=== PATIENT | male | born 1970 | race Caucasian/White ===

== ENCOUNTER 2021-10-20 19:19 | Inpatient (IN) | payer SELFPAY ==
[2021-10-20 22:11] LABS: INR-International Normal Ratio 1.3
[2021-10-20 22:14] LABS: ALT (SGPT) 44 U/L (8-55); AST (SGOT) 86 U/L (5-34); Albumin 2.7 g/dL (3.5-5.0); Alkaline Phosphatase 196 U/L (40-110); Anion Gap 12 mmol/L (10-20); BUN (Urea Nitrogen) 14 mg/dL (8.4-25.7); Bilirubin, Total 2.3 mg/dL (0.2-1.2); Calc. Creatinine Clearance 0 mL/min (70-130); Calcium 8.3 mg/dL (7.8-10.44); Carbon Dioxide 24 mmol/L (22-29); Chloride 94 mmol/L (98-107); Globulin 4.5 g/dL (2.4-3.5); Glucose 130 mg/dL (70-105); Potassium 3.3 mmol/L (3.5-5.1); Protein, Total 7.2 g/dL (6.0-8.3); Sodium 127 mmol/L (136-145)
[2021-10-20 22:18] LABS: Mean Corpuscular HGB CONC 35.1 g/dL (32.0-36.0); Mean Corpuscular Hemoglobin 36.3 pg (27.0-31.0); RBC Distribution Width 12.5 % (11.5-14.5); Red Blood Cell (RBC) Count 4.41 mill/uL (4.70-6.10); White Blood Cell (WBC) Count 6.6 thou/uL (4.8-10.8)
[2021-10-20 22:29] LABS: #Lymphocytes 0.5 thou/uL (1.20-3.40); #Monocytes 0.6 thou/uL (0.11-0.59); #Neutrophils 5.4 thou/uL (1.40-6.50); %Basophils 0.1 % (0.0-1.0); %Eosinophils 0.1 % (0.0-10.0); %Lymphocytes 8.2 % (21.0-51.0); %Monocytes 9.6 % (0.0-10.0); %Neutrophils 82.1 % (42.0-75.0); Mean Platelet Volume 9.4 fL (7.4-10.4); Platelet Count 44 thou/uL (130-400); Platelet Morphology Comment Appears Decreased
[2021-10-20] MEDS ORDERED: Dextrose 5% in Water 1,000 ML IV PRN (23:42)
[2021-10-20] MEDS ORDERED: Dextrose 50% Abboject 50 ML SYRINGE SLOW IVP PRN (23:42)
[2021-10-20] MEDS ORDERED: traMADol HCl 50 MG TAB PO PRN (23:49)
[2021-10-21] MEDS ORDERED: Furosemide 20 MG/2 ML VIAL SLOW IVP SCH (00:15)
[2021-10-21 01:04] LABS: SARS-CoV-2 NAA Rapid Test DETECTED (NotDetected)
[2021-10-21] MEDS: Nicotine 14 MG PATCH TD SCH ×2 (01:53→23:42)
[2021-10-21] MEDS ORDERED: Potassium Chloride 20 MEQ TAB PO SCH (02:00)
[2021-10-21] MEDS ORDERED: Electrolyte Replacement Protocol 1 EACH FS PRN (04:30)
[2021-10-21] MEDS: Furosemide 20 MG/2 ML VIAL SLOW IVP SCH ×2 (06:05→14:02)
[2021-10-21] MEDS: Lorazepam 1 MG TAB PO SCH ×4 (07:08→23:44)
[2021-10-21 07:53] LABS: CRP (Inflammatory) 14.48 mg/dL (= or < 0.5); Magnesium 1.7 mg/dL (1.6-2.6); Phosphorus 2.5 mg/dL (2.3-4.7)
[2021-10-21] MEDS: cefTRIAXone\\ROCEPHIN 1 GM in Sodium Chloride 0.9% 100 ML IVPB SCH (07:54)
[2021-10-21] MEDS: Ascorbic Acid 500 mg Chewable Tablet PO SCH (07:55)
[2021-10-21] MEDS: Spironolactone 25 MG TAB PO SCH (07:55)
[2021-10-21] MEDS: Zinc Sulfate 220 MG CAP PO SCH (07:55)
[2021-10-21] MEDS: Folic Acid 1 MG TAB PO SCH (07:56)
[2021-10-21] MEDS ORDERED: Spironolactone 25 MG TAB PO SCH (08:00)
[2021-10-21] MEDS ORDERED: Magnesium 2 GM/50 ML 2 GM in Premix Bag 1 BAG IVPB SCH (10:45)
[2021-10-21] MEDS: HYDROcodone/Acetaminophen 5/325 mg Tablet PO PRN ×2 (14:11→23:47)
[2021-10-21 18:10] LABS: Iron 15 ug/dL (65-175); Iron Binding Capacity, Total 221 mcg/dL (261-462)
[2021-10-21 18:28] LABS: HBSAB Concentration Less than 8.00 mIU/mL; HBSAg Index 0.29 S/CO (0-0.99); Hep B Surf AB Non-Reactive (NonReactive); Hep B Surf Ag Non-Reactive S/CO (NonReactive); Hep C IgG Ab Non-Reactive (NonReactive); Hep C Index 0.16 S/CO (0-0.79)
[2021-10-22] MEDS: Furosemide 20 MG/2 ML VIAL SLOW IVP SCH ×2 (05:27→14:23)
[2021-10-22] MEDS: Lorazepam 1 MG TAB PO SCH ×4 (05:27→23:51)
[2021-10-22 07:56] LABS: ALT (SGPT) 41 U/L (8-55); AST (SGOT) 86 U/L (5-34); Albumin 2.4 g/dL (3.5-5.0); Alkaline Phosphatase 181 U/L (40-110); Anion Gap 12 mmol/L (10-20); BUN (Urea Nitrogen) 14 mg/dL (8.4-25.7); Bilirubin, Total 1.9 mg/dL (0.2-1.2); Calc. Creatinine Clearance 144 mL/min (70-130); Calcium 7.9 mg/dL (7.8-10.44); Carbon Dioxide 26 mmol/L (22-29); Chloride 91 mmol/L (98-107); Glucose 136 mg/dL (70-105); Potassium 3.2 mmol/L (3.5-5.1); Protein, Total 6.4 g/dL (6.0-8.3); Sodium 126 mmol/L (136-145)
[2021-10-22 08:00] LABS: Hemoglobin 14.1 g/dL (14.0-18.0); Mean Corpuscular HGB CONC 33.7 g/dL (32.0-36.0); Mean Platelet Volume 8.3 fL (7.4-10.4); Platelet Count 43 thou/uL (130-400); RBC Distribution Width 12.4 % (11.5-14.5); Red Blood Cell (RBC) Count 4.04 mill/uL (4.70-6.10); White Blood Cell (WBC) Count 4.3 thou/uL (4.8-10.8)
[2021-10-22] MEDS: Folic Acid 1 MG TAB PO SCH (08:12)
[2021-10-22] MEDS: Zinc Sulfate 220 MG CAP PO SCH (08:12)
[2021-10-22] MEDS: Spironolactone 25 MG TAB PO SCH (08:12)
[2021-10-22] MEDS: cefTRIAXone\\ROCEPHIN 1 GM in Sodium Chloride 0.9% 100 ML IVPB SCH (08:12)
[2021-10-22] MEDS: Ascorbic Acid 500 mg Chewable Tablet PO SCH (08:12)
[2021-10-22 11:49] LABS: Band 5 % (5-11); Lymphocytes 12 % (21-51); MDiff Complete? YES; Monocytes 14 % (0-10); Neutrophil 69 % (42-75); Platelet Morphology Comment Appears Decreased; RBC Morphology Normal
[2021-10-22 13:21] LABS: RBC Count-Automated (BF) 1102 /cu.mm; WBC/Nucleated-Auto (BF) 1266 /cu.mm
[2021-10-22 13:43] LABS: BF Color Yellow; Body Fluid Source Ascites Body Fluid; Clarity Hazy (Clear); Tube # EDTA
[2021-10-22 13:46] LABS: BF Segmented Neutrophils 31 %; Cell Count Non Hematic 54 %; Lymphocytes 15 %
[2021-10-22] MEDS ORDERED: Dexamethasone 6 MG in Sodium Chloride 0.9% 50 ML IVPB SCH (17:41)
[2021-10-22] MEDS ORDERED: Dexamethasone 4 mg/ml Vial SLOW IVP SCH (18:30)
[2021-10-22] MEDS: HYDROcodone/Acetaminophen 5/325 mg Tablet PO PRN (22:09)
[2021-10-23] MEDS: Nicotine 14 MG PATCH TD SCH ×2 (00:05→23:56)
[2021-10-23] MEDS: Furosemide 20 MG/2 ML VIAL SLOW IVP SCH ×2 (05:55→14:47)
[2021-10-23] MEDS ORDERED: Lorazepam 1 MG TAB PO PRN (06:13)
[2021-10-23 07:16] LABS: Anion Gap 12 mmol/L (10-20); BUN (Urea Nitrogen) 15 mg/dL (8.4-25.7); CRP (Inflammatory) 10.09 mg/dL (= or < 0.5); Calc. Creatinine Clearance 153 mL/min (70-130); Calcium 8.5 mg/dL (7.8-10.44); Carbon Dioxide 27 mmol/L (22-29); Chloride 93 mmol/L (98-107); Glucose 186 mg/dL (70-105); Potassium 3.6 mmol/L (3.5-5.1); Sodium 128 mmol/L (136-145)
[2021-10-23] MEDS: Zinc Sulfate 220 MG CAP PO SCH (08:13)
[2021-10-23] MEDS: Spironolactone 25 MG TAB PO SCH (08:13)
[2021-10-23] MEDS: Ascorbic Acid 500 mg Chewable Tablet PO SCH (08:13)
[2021-10-23] MEDS: Folic Acid 1 MG TAB PO SCH (08:13)
[2021-10-23] MEDS: Dexamethasone 4 mg/ml Vial SLOW IVP SCH (08:14)
[2021-10-23] MEDS: cefTRIAXone\\ROCEPHIN 1 GM in Sodium Chloride 0.9% 100 ML IVPB SCH (08:14)
[2021-10-23] MEDS: HumaLOG 300 UNITS/3 ML VIAL SC PRN ×3 (12:10→20:57)
[2021-10-24] MEDS ORDERED: Lorazepam 1 MG TAB PO PRN (03:29)
[2021-10-24] MEDS: Thiamine 100 MG TAB PO SCH (05:00)
[2021-10-24] MEDS: Furosemide 20 MG/2 ML VIAL SLOW IVP SCH ×2 (05:00→14:22)
[2021-10-24] MEDS: HumaLOG 300 UNITS/3 ML VIAL SC PRN ×4 (05:24→23:02)
[2021-10-24 06:04] LABS: #Lymphocytes 0.3 thou/uL (1.20-3.40); #Monocytes 0.6 thou/uL (0.11-0.59); #Neutrophils 3.7 thou/uL (1.40-6.50); %Basophils 0.3 % (0.0-1.0); %Monocytes 13.3 % (0.0-10.0); %Neutrophils 80.3 % (42.0-75.0); Hemoglobin 14.1 g/dL (14.0-18.0); Mean Corpuscular Hemoglobin 35.1 pg (27.0-31.0); Mean Platelet Volume 8.8 fL (7.4-10.4); Platelet Count 47 thou/uL (130-400); RBC Distribution Width 12.3 % (11.5-14.5); Red Blood Cell (RBC) Count 4.01 mill/uL (4.70-6.10); White Blood Cell (WBC) Count 4.6 thou/uL (4.8-10.8)
[2021-10-24 06:17] LABS: Anion Gap 11 mmol/L (10-20); BUN (Urea Nitrogen) 17 mg/dL (8.4-25.7); CRP (Inflammatory) 6.97 mg/dL (= or < 0.5); Calc. Creatinine Clearance 165 mL/min (70-130); Calcium 8.3 mg/dL (7.8-10.44); Carbon Dioxide 30 mmol/L (22-29); Chloride 95 mmol/L (98-107); Glucose 190 mg/dL (70-105); Potassium 3.6 mmol/L (3.5-5.1); Sodium 132 mmol/L (136-145)
[2021-10-24] MEDS: Ascorbic Acid 500 mg Chewable Tablet PO SCH (08:17)
[2021-10-24] MEDS: Spironolactone 25 MG TAB PO SCH (08:17)
[2021-10-24] MEDS: Dexamethasone 4 mg/ml Vial SLOW IVP SCH (08:18)
[2021-10-24] MEDS: Zinc Sulfate 220 MG CAP PO SCH (08:18)
[2021-10-24] MEDS: Folic Acid 1 MG TAB PO SCH (08:18)
[2021-10-24] MEDS: cefTRIAXone\\ROCEPHIN 1 GM in Sodium Chloride 0.9% 100 ML IVPB SCH (08:25)
[2021-10-24] MEDS: Nicotine 14 MG PATCH TD SCH ×2 (20:16→22:00)
[2021-10-25] MEDS: Thiamine 100 MG TAB PO SCH (05:19)
[2021-10-25] MEDS: Furosemide 20 MG/2 ML VIAL SLOW IVP SCH ×2 (05:19→14:44)
[2021-10-25 05:56] VITALS: BMI 30.2
[2021-10-25] MEDS: HumaLOG 300 UNITS/3 ML VIAL SC PRN ×4 (06:17→19:52)
[2021-10-25 07:16] LABS: #Lymphocytes 0.3 thou/uL (1.20-3.40); #Monocytes 0.5 thou/uL (0.11-0.59); #Neutrophils 4.3 thou/uL (1.40-6.50); %Basophils 0.2 % (0.0-1.0); %Eosinophils 0.1 % (0.0-10.0); %Lymphocytes 6.6 % (21.0-51.0); %Monocytes 9.6 % (0.0-10.0); %Neutrophils 83.5 % (42.0-75.0); Hemoglobin 14.9 g/dL (14.0-18.0); Mean Corpuscular HGB CONC 34.2 g/dL (32.0-36.0); Mean Platelet Volume 8.5 fL (7.4-10.4); Platelet Count 55 thou/uL (130-400); RBC Distribution Width 12.3 % (11.5-14.5); Red Blood Cell (RBC) Count 4.26 mill/uL (4.70-6.10); White Blood Cell (WBC) Count 5.1 thou/uL (4.8-10.8)
[2021-10-25 07:28] LABS: Anion Gap 10 mmol/L (10-20); BUN (Urea Nitrogen) 14 mg/dL (8.4-25.7); CRP (Inflammatory) 4.48 mg/dL (= or < 0.5); Calc. Creatinine Clearance 177 mL/min (70-130); Calcium 8.2 mg/dL (7.8-10.44); Carbon Dioxide 30 mmol/L (22-29); Chloride 96 mmol/L (98-107); Glucose 208 mg/dL (70-105); Potassium 3.4 mmol/L (3.5-5.1); Sodium 133 mmol/L (136-145)
[2021-10-25] MEDS ORDERED: Potassium Chloride 20 MEQ TAB PO SCH (08:00)
[2021-10-25] MEDS: Dexamethasone 4 mg/ml Vial SLOW IVP SCH (08:59)
[2021-10-25] MEDS: cefTRIAXone\\ROCEPHIN 1 GM in Sodium Chloride 0.9% 100 ML IVPB SCH (08:59)
[2021-10-25] MEDS: Spironolactone 25 MG TAB PO SCH (09:03)
[2021-10-25] MEDS: Zinc Sulfate 220 MG CAP PO SCH (09:04)
[2021-10-25] MEDS: Ascorbic Acid 500 mg Chewable Tablet PO SCH (09:04)
[2021-10-25] MEDS: Folic Acid 1 MG TAB PO SCH (09:04)
[2021-10-25 16:12] LABS: RBC Count-Automated (BF) 1157 /cu.mm; WBC/Nucleated-Auto (BF) 328 /cu.mm
[2021-10-25 16:17] LABS: BF Color Yellow; Body Fluid Source Ascites Body Fluid; Clarity Hazy (Clear); Tube # EDTA
[2021-10-25 16:43] LABS: BF Segmented Neutrophils 6 %; Cell Count Non Hematic 68 %; Lymphocytes 26 %
[2021-10-25] MEDS: Nicotine 14 MG PATCH TD SCH (23:15)
[2021-10-26] MEDS: Furosemide 20 MG/2 ML VIAL SLOW IVP SCH (05:17)
[2021-10-26] MEDS: Thiamine 100 MG TAB PO SCH (05:17)
[2021-10-26] MEDS: HumaLOG 300 UNITS/3 ML VIAL SC PRN ×2 (05:25→11:41)
[2021-10-26 07:38] LABS: #Lymphocytes 0.4 thou/uL (1.20-3.40); #Monocytes 0.5 thou/uL (0.11-0.59); #Neutrophils 5.2 thou/uL (1.40-6.50); %Basophils 0.6 % (0.0-1.0); %Lymphocytes 6.9 % (21.0-51.0); %Monocytes 8.2 % (0.0-10.0); %Neutrophils 84.3 % (42.0-75.0); Hemoglobin 16.4 g/dL (14.0-18.0); Mean Corpuscular HGB CONC 34.2 g/dL (32.0-36.0); Mean Platelet Volume 8.6 fL (7.4-10.4); Platelet Count 62 thou/uL (130-400); RBC Distribution Width 12.4 % (11.5-14.5); Red Blood Cell (RBC) Count 4.69 mill/uL (4.70-6.10); White Blood Cell (WBC) Count 6.2 thou/uL (4.8-10.8)
[2021-10-26 07:57] LABS: Anion Gap 10 mmol/L (10-20); BUN (Urea Nitrogen) 16 mg/dL (8.4-25.7); Calc. Creatinine Clearance 154 mL/min (70-130); Calcium 8.7 mg/dL (7.8-10.44); Carbon Dioxide 30 mmol/L (22-29); Chloride 95 mmol/L (98-107); Glucose 223 mg/dL (70-105); Potassium 3.5 mmol/L (3.5-5.1); Sodium 131 mmol/L (136-145)
[2021-10-26] MEDS ORDERED: Spironolactone 100 MG TAB PO SCH (08:00)
[2021-10-26] MEDS: cefTRIAXone\\ROCEPHIN 1 GM in Sodium Chloride 0.9% 100 ML IVPB SCH (08:04)
[2021-10-26] MEDS: Ascorbic Acid 500 mg Chewable Tablet PO SCH (08:04)
[2021-10-26] MEDS: Folic Acid 1 MG TAB PO SCH (08:04)
[2021-10-26] MEDS: Zinc Sulfate 220 MG CAP PO SCH (08:04)
[2021-10-26] MEDS: Dexamethasone 4 mg/ml Vial SLOW IVP SCH (08:05)
[2021-10-26 08:20] VITALS: BP 126/76; TEMP 97.8
[2021-10-26] MEDS ORDERED: Potassium Chloride 20 MEQ TAB PO SCH (09:00)
== END 2021-10-26 12:00 | disposition home or self-care (01) | DRG 432 ==
LOC: ERS 19:19 → T4-B 23:06 → OBSVTOIN 10-22 09:30
PROVIDERS: ADMIT Student in an Organized Health Care Education/Training Program; ATTEND Internal Medicine
PROC: 8E0ZXY6 Isolation (ICD-10-PCS; principal; 2021-10-22)
PROC: 0W9G3ZZ Drainage of Peritoneal Cavity, Percutaneous Approach (ICD-10-PCS; 2021-10-22)
PROC: 0W9G3ZZ Drainage of Peritoneal Cavity, Percutaneous Approach (ICD-10-PCS; 2021-10-22)
DX: K70.31 Alcoholic cirrhosis of liver with ascites (principal); K65.2 Spontaneous bacterial peritonitis; K72.00 Acute and subacute hepatic failure without coma; U07.1 COVID-19; J12.82 Pneumonia due to coronavirus disease 2019; E87.1 Hypo-osmolality and hyponatremia; F10.239 Alcohol dependence with withdrawal, unspecified; E11.9 Type 2 diabetes mellitus without complications; I25.10 Atherosclerotic heart disease of native coronary artery without angina pectoris; E78.5 Hyperlipidemia, unspecified; K21.9 Gastro-esophageal reflux disease without esophagitis; F17.210 Nicotine dependence, cigarettes, uncomplicated; D69.6 Thrombocytopenia, unspecified; E87.6 Hypokalemia; I25.2 Old myocardial infarction; Z95.5 Presence of coronary angioplasty implant and graft
CPT/HCPCS: 0240U; 36415; 36416; 49083; 71045; 76705; 80048; 80053; 82042; 82105; 82140; 83540; 83550; 83615; 83735; 83930; 83935; 84100; 85025; 85060; 85610; 85730; 86140; 86706; 86708; 86803; 87045; 87046; 87070; 87205; 87324; 87328; 87329; 87340; 87427; 87449; 89051; J0696; J1100; J1815; J1940; J3475; J3490

== ENCOUNTER 2021-11-10 06:55 | Inpatient (IN) | payer OTHER, SELFPAY ==
[2021-11-10 07:36] LABS: Bilirubin Negative (Negative); Blood, Urine Moderate (Negative); Glucose, Urine (Dipstick) >=1000 mg/dL (Negative); Ketone, Urine Negative (Negative); Leukocyte Negative (Negative); Nitrite Negative (Negative); Protein, Urine (Dipstick) 30 mg/dL (Neg-Trace); Urobilinogen 0.2 mg/dL (Less than 2); pH, Urine 5.5 (5.0-9.0)
[2021-11-10 07:40] LABS: Clarity Hazy (Clear)
[2021-11-10 07:44] LABS: RBC/HPF 0-3 HPF (0-3)
[2021-11-10 07:45] LABS: Renal Epithelial 0-3 HPF (None Seen); Squamous Epithelial 0-3 HPF (0-3); WBC/HPF 0-3 HPF (0-3)
[2021-11-10 07:47] LABS: Bacteria/HPF 2+ HPF (None Seen)
[2021-11-10] MEDS ORDERED: Cefepime 2 GM VIAL ONE (07:47)
[2021-11-10 07:57] LABS: Broad Cast 0-3 LPF (None Seen)
[2021-11-10] MEDS ORDERED: Vancomycin 1 GM/200 ML BAG ONE (08:29)
[2021-11-10 08:32] LABS: Hemoglobin 16.5 g/dL (14.0-18.0); Mean Corpuscular HGB CONC 33.4 g/dL (32.0-36.0); Mean Corpuscular Hemoglobin 34.2 pg (27.0-31.0); Mean Platelet Volume 10.5 fL (7.4-10.4); Platelet Count 46 thou/uL (130-400); RBC Distribution Width 14.3 % (11.5-14.5); Red Blood Cell (RBC) Count 4.84 mill/uL (4.70-6.10); White Blood Cell (WBC) Count 9.3 thou/uL (4.8-10.8)
[2021-11-10 08:51] LABS: Band 2 % (5-11); Lymphocytes 2 % (21-51); MDiff Complete? YES; Monocytes 8 % (0-10); Neutrophil 86 % (42-75); Platelet Morphology Comment Appears Decreased; Polychromasia SLIGHT = 2-3 cells (100X) (0-2/hpf); Reactive Lymphocytes 2 % (0-10); Vacuoles SLIGHT
[2021-11-10 09:20] LABS: ALT (SGPT) 98 U/L (8-55); AST (SGOT) 106 U/L (5-34); Albumin 2.4 g/dL (3.5-5.0); Alkaline Phosphatase 260 U/L (40-110); Anion Gap 25 mmol/L (10-20); BUN (Urea Nitrogen) 73 mg/dL (8.4-25.7); Bilirubin, Total 4.5 mg/dL (0.2-1.2); Calc. Creatinine Clearance 0 mL/min (70-130); Calcium 7.9 mg/dL (7.8-10.44); Carbon Dioxide 12 mmol/L (22-29); Chloride 89 mmol/L (98-107); Globulin 4.5 g/dL (2.4-3.5); Glucose 228 mg/dL (70-105); Lipase 189 U/L (8-78); Protein, Total 6.9 g/dL (6.0-8.3); Sodium 121 mmol/L (136-145)
[2021-11-10 09:49] LABS: Analyzer IN Cardio ER; Base Excess -7.7 mEq/L (-2.0 to +3.0); Calcium, Ionized (venous) 0.87 mmol/L (1.16-1.32); Chloride (VBG) 90 mmol/L (98-106); Hemoglobin (Hb) 16.8 g/dL (13.1-17.2); Potassium (VBG) 4.97 mmol/L (3.70-5.30); pH (venous) 7.43 (7.32-7.43)
[2021-11-10 09:53] LABS: Actual Bicarbonate (HCO3v) 14 mEq/L (22-28)
[2021-11-10 09:58] LABS: INR-International Normal Ratio 1.4
[2021-11-10 09:59] LABS: PTT 42.3 sec (22.9-36.1)
[2021-11-10 10:16] LABS: ALT (SGPT) 95 U/L (8-55); AST (SGOT) 98 U/L (5-34); Albumin 2.1 g/dL (3.5-5.0); Alkaline Phosphatase 241 U/L (40-110); Anion Gap 26 mmol/L (10-20); BUN (Urea Nitrogen) 70 mg/dL (8.4-25.7); Bilirubin, Total 4.4 mg/dL (0.2-1.2); Calc. Creatinine Clearance 0 mL/min (70-130); Calcium 7.9 mg/dL (7.8-10.44); Carbon Dioxide 9 mmol/L (22-29); Chloride 92 mmol/L (98-107); Globulin 4.4 g/dL (2.4-3.5); Glucose 262 mg/dL (70-105); Potassium 5.2 mmol/L (3.5-5.1); Protein, Total 6.5 g/dL (6.0-8.3); Sodium 122 mmol/L (136-145)
[2021-11-10] MEDS ORDERED: Ondansetron PF 4 MG/2 ML Vial IVP PRN (10:30)
[2021-11-10] MEDS ORDERED: Ondansetron ODT 4 MG TAB SL PRN (10:30)
[2021-11-10] MEDS ORDERED: Dextrose 50% Abboject 50 ML SYRINGE SLOW IVP PRN (11:13)
[2021-11-10] MEDS ORDERED: Senokot S 8.6-50 MG TAB PO PRN (11:13)
[2021-11-10] MEDS ORDERED: Dextrose 5% in Water 1,000 ML IV PRN (11:13)
[2021-11-10] MEDS ORDERED: Sodium Bicarbonate 150 MEQ in Dextrose 5% in Water 1,000 ML IV SCH (11:15)
[2021-11-10] MEDS: Cefepime 0.5 GM in Sodium Chloride 0.9% 100 ML IVPB SCH (13:14)
[2021-11-10 16:08] LABS: Lactic Acid 4.5 mmol/L (0.5-2.2)
[2021-11-10] MEDS: HumaLOG 300 UNITS/3 ML VIAL SC PRN (16:16)
[2021-11-10] MEDS: Heparin 5,000 UNITS/ML VIAL SC SCH (22:00)
[2021-11-10] MEDS: Lantus 1000 UNITS/10 ML VIAL SC SCH (22:01)
[2021-11-11 04:01] LABS: ALT (SGPT) 104 U/L (8-55); AST (SGOT) 116 U/L (5-34); Alkaline Phosphatase 220 U/L (40-110); Anion Gap 19 mmol/L (10-20); BUN (Urea Nitrogen) 85 mg/dL (8.4-25.7); Bilirubin, Total 5.1 mg/dL (0.2-1.2); Calc. Creatinine Clearance 14 mL/min (70-130); Calcium 7.9 mg/dL (7.8-10.44); Carbon Dioxide 18 mmol/L (22-29); Chloride 92 mmol/L (98-107); Globulin 3.9 g/dL (2.4-3.5); Glucose 131 mg/dL (70-105); Potassium 4.3 mmol/L (3.5-5.1); Protein, Total 5.9 g/dL (6.0-8.3); Sodium 125 mmol/L (136-145)
[2021-11-11 04:14] LABS: Band 6 % (5-11); Hemoglobin 14.7 g/dL (14.0-18.0); Lymphocytes 4 % (21-51); MDiff Complete? YES; Mean Corpuscular HGB CONC 34.2 g/dL (32.0-36.0); Mean Corpuscular Hemoglobin 33.7 pg (27.0-31.0); Mean Corpuscular Volume 98.7 fL (78.0-98.0); Mean Platelet Volume 9.3 fL (7.4-10.4); Monocytes 11 % (0-10); Neutrophil 79 % (42-75); Platelet Count 32 thou/uL (130-400); Platelet Morphology Comment Appears Decreased; RBC Distribution Width 14.3 % (11.5-14.5); RBC Morphology Normal; Red Blood Cell (RBC) Count 4.36 mill/uL (4.70-6.10); White Blood Cell (WBC) Count 11.7 thou/uL (4.8-10.8)
[2021-11-11] MEDS ORDERED: Pantoprazole 40 MG VIAL IVP SCH (09:00)
[2021-11-11] MEDS: Lantus 1000 UNITS/10 ML VIAL SC SCH (09:06)
[2021-11-11] MEDS: Heparin 5,000 UNITS/ML VIAL SC SCH ×2 (09:21→20:33)
[2021-11-11] MEDS: Cefepime 0.5 GM in Sodium Chloride 0.9% 100 ML IVPB SCH (13:52)
[2021-11-11] MEDS ORDERED: Heparin 10,000 UNITS/ 10 ML VIAL ONE (15:43)
[2021-11-11] MEDS: Albumin 25% 25 GM/100 ML BOT IVPB SCH (20:33)
[2021-11-11] MEDS: Pantoprazole 40 MG VIAL IVP SCH (20:33)
[2021-11-11] MEDS: Octreotide Acetate 1,250 MCG in Sodium Chloride 0.9% 250 ML 250 ML IVPB SCH (20:33)
[2021-11-12 04:54] LABS: ALT (SGPT) 107 U/L (8-55); AST (SGOT) 98 U/L (5-34); Albumin 2.2 g/dL (3.5-5.0); Alkaline Phosphatase 191 U/L (40-110); Anion Gap 22 mmol/L (10-20); BUN (Urea Nitrogen) 70 mg/dL (8.4-25.7); Bilirubin, Total 5.2 mg/dL (0.2-1.2); Calc. Creatinine Clearance 13 mL/min (70-130); Calcium 8.6 mg/dL (7.8-10.44); Carbon Dioxide 19 mmol/L (22-29); Chloride 95 mmol/L (98-107); Globulin 3.6 g/dL (2.4-3.5); Glucose 175 mg/dL (70-105); Potassium 4.5 mmol/L (3.5-5.1); Protein, Total 5.8 g/dL (6.0-8.3); Sodium 131 mmol/L (136-145)
[2021-11-12 05:29] LABS: #Eosinphils 0.1 thou/uL (0.0-0.7); #Lymphocytes 0.5 thou/uL (1.20-3.40); #Neutrophils 6.3 thou/uL (1.40-6.50); %Eosinophils 0.9 % (0.0-10.0); %Lymphocytes 6.3 % (21.0-51.0); %Neutrophils 79.7 % (42.0-75.0); Hemoglobin 13.4 g/dL (14.0-18.0); MDiff Complete? YES; Mean Corpuscular Hemoglobin 34.1 pg (27.0-31.0); Mean Platelet Volume 9.6 fL (7.4-10.4); Platelet Count 20 thou/uL (130-400); RBC Distribution Width 14.3 % (11.5-14.5); Red Blood Cell (RBC) Count 3.93 mill/uL (4.70-6.10); White Blood Cell (WBC) Count 7.9 thou/uL (4.8-10.8)
[2021-11-12 05:30] LABS: Macrocytosis MODERATE=16-30 cells (100X) (0-5/hpf); Ovalocytes SLIGHT = 2-5 cells (100X) (0-1/hpf); Platelet Morphology Comment Appears Decreased
[2021-11-12] MEDS: Heparin 5,000 UNITS/ML VIAL SC SCH (08:12)
[2021-11-12] MEDS: Pantoprazole 40 MG VIAL IVP SCH ×2 (09:00→20:31)
[2021-11-12] MEDS: Albumin 25% 25 GM/100 ML BOT IVPB SCH ×3 (09:00→20:26)
[2021-11-12] MEDS ORDERED: Heparin 10,000 UNITS/ 10 ML VIAL ONE ×2 (09:41→09:54)
[2021-11-12] MEDS ORDERED: Midodrine HCl 5 MG TAB PO SCH ×2 (10:00→14:00)
[2021-11-12] MEDS: Cefepime 0.5 GM in Sodium Chloride 0.9% 100 ML IVPB SCH (14:46)
[2021-11-12] MEDS: Midodrine HCl 5 MG TAB PO SCH ×2 (17:53→21:01)
[2021-11-12] MEDS: Octreotide Acetate 1,250 MCG in Sodium Chloride 0.9% 250 ML 250 ML IVPB SCH (20:25)
[2021-11-13] MEDS: Midodrine HCl 5 MG TAB PO SCH ×3 (05:04→23:13)
[2021-11-13 05:37] LABS: Hemoglobin 12.9 g/dL (14.0-18.0); Mean Corpuscular HGB CONC 34.1 g/dL (32.0-36.0); Mean Corpuscular Hemoglobin 34.6 pg (27.0-31.0); Mean Platelet Volume 9.6 fL (7.4-10.4); Platelet Count 20 thou/uL (130-400); RBC Distribution Width 14.3 % (11.5-14.5); Red Blood Cell (RBC) Count 3.74 mill/uL (4.70-6.10); White Blood Cell (WBC) Count 5.7 thou/uL (4.8-10.8)
[2021-11-13 05:55] LABS: Band 2 % (5-11); Hypochromia SLIGHT = 6-15 cells (100X) (0-5/hpf); Lymphocytes 2 % (21-51); MDiff Complete? YES; Macrocytosis SLIGHT = 6-15 cells (100X) (0-5/hpf); Monocytes 21 % (0-10); Neutrophil 75 % (42-75); Platelet Morphology Comment Appears Decreased
[2021-11-13 05:58] LABS: ALT (SGPT) 88 U/L (8-55); AST (SGOT) 68 U/L (5-34); Albumin 2.9 g/dL (3.5-5.0); Alkaline Phosphatase 166 U/L (40-110); Anion Gap 17 mmol/L (10-20); BUN (Urea Nitrogen) 51 mg/dL (8.4-25.7); Bilirubin, Total 5.6 mg/dL (0.2-1.2); Calc. Creatinine Clearance 16 mL/min (70-130); Calcium 8.7 mg/dL (7.8-10.44); Carbon Dioxide 23 mmol/L (22-29); Chloride 98 mmol/L (98-107); Glucose 193 mg/dL (70-105); Potassium 4.3 mmol/L (3.5-5.1); Protein, Total 5.9 g/dL (6.0-8.3); Sodium 134 mmol/L (136-145)
[2021-11-13] MEDS: HumaLOG 300 UNITS/3 ML VIAL SC PRN ×4 (06:25→20:38)
[2021-11-13] MEDS: Pantoprazole 40 MG VIAL IVP SCH ×2 (09:23→20:07)
[2021-11-13] MEDS: Albumin 25% 25 GM/100 ML BOT IVPB SCH ×2 (09:23→13:34)
[2021-11-13] MEDS ORDERED: Heparin 10,000 UNITS/ 10 ML VIAL ONE (09:46)
[2021-11-13] MEDS: Cefepime 0.5 GM in Sodium Chloride 0.9% 100 ML IVPB SCH (13:34)
[2021-11-13] MEDS: Acetaminophen 325 MG TAB PO PRN (20:07)
[2021-11-13] MEDS: Octreotide Acetate 1,250 MCG in Sodium Chloride 0.9% 250 ML 250 ML IVPB SCH (20:08)
[2021-11-14] MEDS: Acetaminophen 325 MG TAB PO PRN (01:16)
[2021-11-14] MEDS: Midodrine HCl 5 MG TAB PO SCH ×3 (05:27→22:46)
[2021-11-14] MEDS: HumaLOG 300 UNITS/3 ML VIAL SC PRN ×2 (05:28→20:46)
[2021-11-14 06:13] LABS: Band 13 % (5-11); Eosinophils 2 % (0-10); Hemoglobin 12.5 g/dL (14.0-18.0); Lymphocytes 10 % (21-51); MDiff Complete? YES; Macrocytosis SLIGHT = 6-15 cells (100X) (0-5/hpf); Mean Corpuscular HGB CONC 33.1 g/dL (32.0-36.0); Mean Corpuscular Hemoglobin 33.8 pg (27.0-31.0); Monocytes 16 % (0-10); Neutrophil 58 % (42-75); Platelet Count 27 thou/uL (130-400); Platelet Morphology Comment Appears Decreased; RBC Distribution Width 14.4 % (11.5-14.5); Reactive Lymphocytes 1 % (0-10); Red Blood Cell (RBC) Count 3.71 mill/uL (4.70-6.10); Spherocytes SLIGHT = 1-5 cells (100X) (None Seen); Target Cells SLIGHT = 2-5 cells (100X) (0-1/hpf); White Blood Cell (WBC) Count 4.1 thou/uL (4.8-10.8)
[2021-11-14] MEDS: Pantoprazole 40 MG VIAL IVP SCH ×2 (09:50→20:40)
[2021-11-14 10:18] LABS: Anion Gap 15 mmol/L (10-20); BUN (Urea Nitrogen) 39 mg/dL (8.4-25.7); Calc. Creatinine Clearance 19 mL/min (70-130); Calcium 8.6 mg/dL (7.8-10.44); Carbon Dioxide 23 mmol/L (22-29); Chloride 99 mmol/L (98-107); Glucose 162 mg/dL (70-105); Potassium 4.4 mmol/L (3.5-5.1); Sodium 133 mmol/L (136-145)
[2021-11-14] MEDS ORDERED: Fentanyl 100 MCG/2 ML VIAL SLOW IVP PRN (12:46)
[2021-11-14] MEDS: Cefepime 0.5 GM in Sodium Chloride 0.9% 100 ML IVPB SCH (15:49)
[2021-11-14] MEDS: Octreotide Acetate 1,250 MCG in Sodium Chloride 0.9% 250 ML 250 ML IVPB SCH (22:45)
[2021-11-15 04:00] LABS: Band 14 % (5-11); Hemoglobin 13.1 g/dL (14.0-18.0); Hypochromia SLIGHT = 6-15 cells (100X) (0-5/hpf); Lymphocytes 2 % (21-51); MDiff Complete? YES; Macrocytosis SLIGHT = 6-15 cells (100X) (0-5/hpf); Mean Corpuscular HGB CONC 32.9 g/dL (32.0-36.0); Mean Corpuscular Hemoglobin 33.8 pg (27.0-31.0); Mean Platelet Volume 9.7 fL (7.4-10.4); Monocytes 12 % (0-10); Neutrophil 72 % (42-75); Platelet Count 26 thou/uL (130-400); Platelet Morphology Comment Appears Decreased; RBC Distribution Width 14.2 % (11.5-14.5); Red Blood Cell (RBC) Count 3.87 mill/uL (4.70-6.10); White Blood Cell (WBC) Count 6.1 thou/uL (4.8-10.8)
[2021-11-15] MEDS: Midodrine HCl 5 MG TAB PO SCH ×3 (05:23→22:13)
[2021-11-15] MEDS: HumaLOG 300 UNITS/3 ML VIAL SC PRN (06:22)
[2021-11-15 06:43] LABS: Anion Gap 19 mmol/L (10-20); BUN (Urea Nitrogen) 57 mg/dL (8.4-25.7); Calc. Creatinine Clearance 16 mL/min (70-130); Calcium 9.2 mg/dL (7.8-10.44); Carbon Dioxide 22 mmol/L (22-29); Chloride 96 mmol/L (98-107); Glucose 217 mg/dL (70-105); Potassium 3.4 mmol/L (3.5-5.1); Sodium 134 mmol/L (136-145)
[2021-11-15] MEDS ORDERED: Heparin 10,000 UNITS/ 10 ML VIAL ONE (08:52)
[2021-11-15] MEDS: Pantoprazole 40 MG VIAL IVP SCH ×2 (09:31→22:13)
[2021-11-15] MEDS ORDERED: Activase 2 MG VIAL CATH SCH (14:15)
[2021-11-15] MEDS ORDERED: Sterile Water 10 ML VIAL IVP SCH (14:15)
[2021-11-15] MEDS: Cefepime 0.5 GM in Sodium Chloride 0.9% 100 ML IVPB SCH (22:12)
[2021-11-16] MEDS: Octreotide Acetate 1,250 MCG in Sodium Chloride 0.9% 250 ML 250 ML IVPB SCH (00:36)
[2021-11-16 04:19] LABS: Hemoglobin 12.7 g/dL (14.0-18.0); Mean Corpuscular HGB CONC 32.8 g/dL (32.0-36.0); Mean Corpuscular Hemoglobin 33.6 pg (27.0-31.0); Platelet Count 23 thou/uL (130-400); RBC Distribution Width 14.7 % (11.5-14.5); Red Blood Cell (RBC) Count 3.79 mill/uL (4.70-6.10); White Blood Cell (WBC) Count 5.4 thou/uL (4.8-10.8)
[2021-11-16 04:26] LABS: Anion Gap 13 mmol/L (10-20); BUN (Urea Nitrogen) 35 mg/dL (8.4-25.7); Calc. Creatinine Clearance 21 mL/min (70-130); Calcium 8.6 mg/dL (7.8-10.44); Carbon Dioxide 27 mmol/L (22-29); Chloride 98 mmol/L (98-107); Glucose 131 mg/dL (70-105); Potassium 3.5 mmol/L (3.5-5.1); Sodium 134 mmol/L (136-145)
[2021-11-16 04:53] LABS: Band 10 % (5-11); Eosinophils 1 % (0-10); Lymphocytes 7 % (21-51); MDiff Complete? YES; Monocytes 15 % (0-10); Neutrophil 66 % (42-75); Platelet Morphology Comment Appears Decreased; Reactive Lymphocytes 1 % (0-10)
[2021-11-16] MEDS: Midodrine HCl 5 MG TAB PO SCH ×3 (05:44→21:25)
[2021-11-16] MEDS: Pantoprazole 40 MG VIAL IVP SCH ×2 (08:40→21:25)
[2021-11-16] MEDS: Rifaximin 550 MG TAB PO SCH ×2 (14:57→21:24)
[2021-11-16] MEDS: Cefepime 0.5 GM in Sodium Chloride 0.9% 100 ML IVPB SCH (17:34)
[2021-11-17 04:26] LABS: ALT (SGPT) 53 U/L (8-55); AST (SGOT) 41 U/L (5-34); Albumin 2.4 g/dL (3.5-5.0); Alkaline Phosphatase 178 U/L (40-110); Anion Gap 16 mmol/L (10-20); BUN (Urea Nitrogen) 52 mg/dL (8.4-25.7); Bilirubin, Total 7.2 mg/dL (0.2-1.2); Calc. Creatinine Clearance 15 mL/min (70-130); Calcium 8.5 mg/dL (7.8-10.44); Carbon Dioxide 23 mmol/L (22-29); Chloride 99 mmol/L (98-107); Globulin 3.2 g/dL (2.4-3.5); Glucose 154 mg/dL (70-105); Magnesium 1.8 mg/dL (1.6-2.6); Phosphorus 5.3 mg/dL (2.3-4.7); Potassium 3.5 mmol/L (3.5-5.1); Protein, Total 5.6 g/dL (6.0-8.3); Sodium 134 mmol/L (136-145)
[2021-11-17 04:56] LABS: Band 5 % (5-11); Eosinophils 3 % (0-10); Hemoglobin 12.6 g/dL (14.0-18.0); Lymphocytes 9 % (21-51); MDiff Complete? YES; Mean Corpuscular HGB CONC 32.9 g/dL (32.0-36.0); Mean Corpuscular Hemoglobin 33.8 pg (27.0-31.0); Mean Platelet Volume 9.3 fL (7.4-10.4); Monocytes 10 % (0-10); Neutrophil 73 % (42-75); Platelet Count 27 thou/uL (130-400); Platelet Morphology Comment Appears Decreased; RBC Distribution Width 15.1 % (11.5-14.5); Red Blood Cell (RBC) Count 3.74 mill/uL (4.70-6.10); White Blood Cell (WBC) Count 6.2 thou/uL (4.8-10.8)
[2021-11-17] MEDS: Midodrine HCl 5 MG TAB PO SCH ×3 (06:16→21:07)
[2021-11-17] MEDS ORDERED: Heparin 10,000 UNITS/ 10 ML VIAL ONE (08:25)
[2021-11-17 09:37] LABS: HBSAB Concentration Less than 8.00 mIU/mL; HBSAg Index 0.47 S/CO (0-0.99); Hep B Surf AB Non-Reactive (NonReactive); Hep B Surf Ag Non-Reactive S/CO (NonReactive)
[2021-11-17] MEDS ORDERED: Ondansetron PF 4 MG/2 ML Vial IVP PRN (12:03)
[2021-11-17] MEDS ORDERED: Sodium Chloride 0.65% Nasal 44 ML BOT EA NARE PRN (12:03)
[2021-11-17] MEDS ORDERED: Artificial Tear Sol 15 ML BOT EA EYE PRN (12:03)
[2021-11-17] MEDS ORDERED: Hydrocerin (Eucerin) Cream 120 gm Jar TOP PRN (12:03)
[2021-11-17] MEDS ORDERED: Calcium Carbonate 500 MG ChewTAB PO PRN (12:03)
[2021-11-17] MEDS ORDERED: hydrALAZINE 20 MG/ML VIAL SLOW IVP PRN (12:03)
[2021-11-17] MEDS ORDERED: GUAIFENESIN SF SOLN 200 MG/10 ML UDCUP PO PRN (12:03)
[2021-11-17] MEDS: Pantoprazole 40 MG VIAL IVP SCH ×2 (13:26→21:07)
[2021-11-17] MEDS: Rifaximin 550 MG TAB PO SCH ×2 (13:26→21:07)
[2021-11-17] MEDS: Cefepime 0.5 GM in Sodium Chloride 0.9% 100 ML IVPB SCH (13:31)
[2021-11-17] MEDS ORDERED: Activase 2 MG VIAL CATH SCH (17:00)
[2021-11-17] MEDS: HumaLOG 300 UNITS/3 ML VIAL SC PRN (19:05)
[2021-11-18 04:46] LABS: Hemoglobin 13.1 g/dL (14.0-18.0); Mean Corpuscular HGB CONC 33.2 g/dL (32.0-36.0); Mean Corpuscular Hemoglobin 34.2 pg (27.0-31.0); Mean Platelet Volume 10.5 fL (7.4-10.4); Platelet Count 24 thou/uL (130-400); RBC Distribution Width 15.4 % (11.5-14.5); Red Blood Cell (RBC) Count 3.82 mill/uL (4.70-6.10); White Blood Cell (WBC) Count 6.7 thou/uL (4.8-10.8)
[2021-11-18 04:49] LABS: Anion Gap 17 mmol/L (10-20); BUN (Urea Nitrogen) 44 mg/dL (8.4-25.7); Calc. Creatinine Clearance 17 mL/min (70-130); Calcium 8.6 mg/dL (7.8-10.44); Carbon Dioxide 23 mmol/L (22-29); Chloride 101 mmol/L (98-107); Glucose 116 mg/dL (70-105); Potassium 3.7 mmol/L (3.5-5.1); Sodium 137 mmol/L (136-145)
[2021-11-18 05:26] LABS: Band 12 % (5-11); Eosinophils 3 % (0-10); Lymphocytes 5 % (21-51); MDiff Complete? YES; Monocytes 5 % (0-10); Neutrophil 75 % (42-75); Platelet Morphology Comment Appears Decreased; Toxic Granulation SLIGHT
[2021-11-18] MEDS: Midodrine HCl 5 MG TAB PO SCH ×3 (06:24→21:25)
[2021-11-18] MEDS: Folic Acid/Vit B Comp W-C PO SCH (09:08)
[2021-11-18] MEDS: Pantoprazole 40 MG VIAL IVP SCH ×2 (09:08→21:25)
[2021-11-18] MEDS: Cyanocobalamin (Vitamin B-12) 1,000 MCG TAB PO SCH (09:08)
[2021-11-18] MEDS: Folic Acid 1 MG TAB PO SCH (09:08)
[2021-11-18] MEDS: Rifaximin 550 MG TAB PO SCH ×2 (09:08→21:25)
[2021-11-18] MEDS: HumaLOG 300 UNITS/3 ML VIAL SC PRN (12:01)
[2021-11-18] MEDS: Cefepime 0.5 GM in Sodium Chloride 0.9% 100 ML IVPB SCH (15:28)
[2021-11-19 05:17] LABS: ALT (SGPT) 50 U/L (8-55); AST (SGOT) 43 U/L (5-34); Albumin 2.5 g/dL (3.5-5.0); Alkaline Phosphatase 183 U/L (40-110); Anion Gap 17 mmol/L (10-20); BUN (Urea Nitrogen) 57 mg/dL (8.4-25.7); Bilirubin, Total 8.4 mg/dL (0.2-1.2); Calc. Creatinine Clearance 14 mL/min (70-130); Calcium 8.5 mg/dL (7.8-10.44); Carbon Dioxide 22 mmol/L (22-29); Chloride 101 mmol/L (98-107); Globulin 3.6 g/dL (2.4-3.5); Glucose 185 mg/dL (70-105); Magnesium 1.8 mg/dL (1.6-2.6); Phosphorus 6.1 mg/dL (2.3-4.7); Potassium 3.2 mmol/L (3.5-5.1); Protein, Total 6.1 g/dL (6.0-8.3); Sodium 137 mmol/L (136-145)
[2021-11-19 05:55] LABS: #Lymphocytes 0.7 thou/uL (1.20-3.40); #Monocytes 0.9 thou/uL (0.11-0.59); #Neutrophils 4.4 thou/uL (1.40-6.50); %Basophils 0.4 % (0.0-1.0); %Eosinophils 0.7 % (0.0-10.0); %Lymphocytes 11.7 % (21.0-51.0); %Monocytes 14.9 % (0.0-10.0); %Neutrophils 72.4 % (42.0-75.0); Hemoglobin 12.8 g/dL (14.0-18.0); Mean Corpuscular HGB CONC 33.6 g/dL (32.0-36.0); Mean Corpuscular Hemoglobin 34.7 pg (27.0-31.0); Mean Platelet Volume 8.7 fL (7.4-10.4); Platelet Count 30 thou/uL (130-400); RBC Distribution Width 15.4 % (11.5-14.5); Red Blood Cell (RBC) Count 3.71 mill/uL (4.70-6.10); White Blood Cell (WBC) Count 6.1 thou/uL (4.8-10.8)
[2021-11-19] MEDS: HumaLOG 300 UNITS/3 ML VIAL SC PRN (06:05)
[2021-11-19] MEDS: Midodrine HCl 5 MG TAB PO SCH ×3 (06:05→20:19)
[2021-11-19] MEDS: Rifaximin 550 MG TAB PO SCH ×2 (09:20→20:19)
[2021-11-19] MEDS: Cyanocobalamin (Vitamin B-12) 1,000 MCG TAB PO SCH (09:20)
[2021-11-19] MEDS: Folic Acid 1 MG TAB PO SCH (09:20)
[2021-11-19] MEDS: Folic Acid/Vit B Comp W-C PO SCH (09:20)
[2021-11-19] MEDS: Cefepime 0.5 GM in Sodium Chloride 0.9% 100 ML IVPB SCH (14:19)
[2021-11-20] MEDS: Midodrine HCl 5 MG TAB PO SCH ×3 (06:00→21:18)
[2021-11-20 06:48] LABS: Hemoglobin 12.1 g/dL (14.0-18.0); Mean Corpuscular HGB CONC 32.9 g/dL (32.0-36.0); Mean Corpuscular Hemoglobin 34.1 pg (27.0-31.0); Mean Platelet Volume 8.9 fL (7.4-10.4); Platelet Count 37 thou/uL (130-400); Red Blood Cell (RBC) Count 3.55 mill/uL (4.70-6.10); White Blood Cell (WBC) Count 6.5 thou/uL (4.8-10.8)
[2021-11-20 07:05] LABS: Anion Gap 19 mmol/L (10-20); BUN (Urea Nitrogen) 68 mg/dL (8.4-25.7); Calc. Creatinine Clearance 12 mL/min (70-130); Calcium 8.7 mg/dL (7.8-10.44); Carbon Dioxide 21 mmol/L (22-29); Chloride 101 mmol/L (98-107); Glucose 115 mg/dL (70-105); Potassium 3.5 mmol/L (3.5-5.1); Sodium 137 mmol/L (136-145)
[2021-11-20 08:18] LABS: Band 14 % (5-11); Lymphocytes 17 % (21-51); MDiff Complete? YES; Monocytes 6 % (0-10); Neutrophil 63 % (42-75); Platelet Morphology Comment Appears Decreased; Polychromasia SLIGHT = 2-3 cells (100X) (0-2/hpf)
[2021-11-20] MEDS ORDERED: Tuberculin PPD 0.1 ML VIAL I-DERMAL SCH ×2 (09:00→20:00)
[2021-11-20] MEDS ORDERED: Heparin 10,000 UNITS/ 10 ML VIAL ONE (09:07)
[2021-11-20] MEDS: Folic Acid/Vit B Comp W-C PO SCH (09:24)
[2021-11-20] MEDS: Folic Acid 1 MG TAB PO SCH (09:24)
[2021-11-20] MEDS: Cyanocobalamin (Vitamin B-12) 1,000 MCG TAB PO SCH (09:24)
[2021-11-20] MEDS: Rifaximin 550 MG TAB PO SCH ×2 (09:24→21:19)
[2021-11-20 10:59] LABS: HBSAB Concentration Less than 8.00 mIU/mL; HBSAg Index 0.25 S/CO (0-0.99); Hep B Core Total Ab Non-Reactive (NonReactive); Hep B Core Total Index 0.17 S/CO (0-0.79); Hep B Surf AB Non-Reactive (NonReactive); Hep B Surf Ag Non-Reactive S/CO (NonReactive); Hep C IgG Ab Non-Reactive (NonReactive); Hep C Index 0.25 S/CO (0-0.79)
[2021-11-20] MEDS ORDERED: ceFAZolin 2 GM/Dextrose 50 ML 2 GM in Premix Bag 1 BAG IVPB SCH (15:00)
[2021-11-21 04:40] LABS: Anion Gap 16 mmol/L (10-20); BUN (Urea Nitrogen) 51 mg/dL (8.4-25.7); Calc. Creatinine Clearance 15 mL/min (70-130); Calcium 8.6 mg/dL (7.8-10.44); Carbon Dioxide 23 mmol/L (22-29); Chloride 102 mmol/L (98-107); Glucose 146 mg/dL (70-105); Potassium 3.4 mmol/L (3.5-5.1); Sodium 138 mmol/L (136-145)
[2021-11-21 05:07] LABS: Anisocytosis SLIGHT = 6-15 cells (100X) (0-5/hpf); Band 16 % (5-11); Hemoglobin 12.6 g/dL (14.0-18.0); Lymphocytes 6 % (21-51); MDiff Complete? YES; Mean Corpuscular HGB CONC 33.3 g/dL (32.0-36.0); Mean Corpuscular Hemoglobin 34.4 pg (27.0-31.0); Mean Platelet Volume 8.7 fL (7.4-10.4); Monocytes 6 % (0-10); Neutrophil 72 % (42-75); Platelet Count 37 thou/uL (130-400); Platelet Morphology Comment Appears Decreased; RBC Distribution Width 16.5 % (11.5-14.5); Red Blood Cell (RBC) Count 3.67 mill/uL (4.70-6.10); White Blood Cell (WBC) Count 6.6 thou/uL (4.8-10.8)
[2021-11-21] MEDS: Midodrine HCl 5 MG TAB PO SCH ×3 (05:54→20:39)
[2021-11-21] MEDS: Folic Acid 1 MG TAB PO SCH (08:22)
[2021-11-21] MEDS: Folic Acid/Vit B Comp W-C PO SCH (08:22)
[2021-11-21] MEDS: Rifaximin 550 MG TAB PO SCH ×2 (08:22→20:39)
[2021-11-21] MEDS: Cyanocobalamin (Vitamin B-12) 1,000 MCG TAB PO SCH (08:22)
[2021-11-21] MEDS ORDERED: Heparin 10,000 UNITS/ 10 ML VIAL ONE (10:42)
[2021-11-21] MEDS ORDERED: Xylocaine 1% w/ Epi 1:100K 10 ML VIAL ONE (10:42)
[2021-11-21] MEDS ORDERED: Sodium Chloride 0.9% 20 ML ONE (10:42)
[2021-11-21] MEDS ORDERED: Bupivacaine PF 0.5% 30 ML VIAL ONE (10:42)
[2021-11-21] MEDS ORDERED: Fentanyl 100 MCG/2 ML VIAL ONE (10:57)
[2021-11-21] MEDS ORDERED: ceFAZolin 2 GM/Dextrose 50 ML IVPB ONE (11:21)
[2021-11-21] MEDS ORDERED: Lidocaine 1% PF 5 ML VIAL ONE (11:45)
[2021-11-21] MEDS ORDERED: Midazolam HCl 2 mg/2 ml Vial ONE (11:46)
[2021-11-21] MEDS ORDERED: Promethazine HCl 25 MG/ML VIAL IM PRN (12:46)
[2021-11-21] MEDS ORDERED: Ondansetron HCl/PF 4 MG/2 ML Vial IVP PRN (12:46)
[2021-11-21] MEDS ORDERED: Promethazine HCl 25 MG/ML VIAL IVPB PRN (12:46)
[2021-11-21] MEDS: HumaLOG 300 UNITS/3 ML VIAL SC PRN (20:37)
[2021-11-22 04:43] LABS: Band 14 % (5-11); Hemoglobin 11.5 g/dL (14.0-18.0); Lymphocytes 4 % (21-51); MDiff Complete? YES; Mean Corpuscular HGB CONC 33.1 g/dL (32.0-36.0); Mean Corpuscular Hemoglobin 34.6 pg (27.0-31.0); Mean Platelet Volume 7.9 fL (7.4-10.4); Monocytes 12 % (0-10); Myelocyte 1 % (0-0); Neutrophil 68 % (42-75); Platelet Count 57 thou/uL (130-400); Platelet Morphology Comment Appears Decreased; RBC Distribution Width 16.8 % (11.5-14.5); Reactive Lymphocytes 1 % (0-10); Red Blood Cell (RBC) Count 3.32 mill/uL (4.70-6.10); White Blood Cell (WBC) Count 9.9 thou/uL (4.8-10.8)
[2021-11-22 04:47] LABS: Anion Gap 17 mmol/L (10-20); BUN (Urea Nitrogen) 56 mg/dL (8.4-25.7); Calc. Creatinine Clearance 14 mL/min (70-130); Calcium 8.5 mg/dL (7.8-10.44); Carbon Dioxide 21 mmol/L (22-29); Chloride 100 mmol/L (98-107); Glucose 160 mg/dL (70-105); Potassium 3.3 mmol/L (3.5-5.1); Sodium 135 mmol/L (136-145)
[2021-11-22] MEDS: Midodrine HCl 5 MG TAB PO SCH ×3 (07:08→21:24)
[2021-11-22] MEDS: Cyanocobalamin (Vitamin B-12) 1,000 MCG TAB PO SCH (07:45)
[2021-11-22] MEDS: Folic Acid/Vit B Comp W-C PO SCH (07:45)
[2021-11-22] MEDS: Folic Acid 1 MG TAB PO SCH (07:45)
[2021-11-22] MEDS: Rifaximin 550 MG TAB PO SCH ×2 (07:45→21:24)
[2021-11-22 11:11] VITALS: BMI 25.2
[2021-11-22] MEDS ORDERED: READ PPD TEST SITE PO SCH ×2 (20:00)
[2021-11-23] MEDS: Midodrine HCl 5 MG TAB PO SCH ×3 (06:54→21:01)
[2021-11-23] MEDS: Folic Acid 1 MG TAB PO SCH (09:56)
[2021-11-23] MEDS: Folic Acid/Vit B Comp W-C PO SCH (09:56)
[2021-11-23] MEDS: Rifaximin 550 MG TAB PO SCH ×2 (09:56→20:55)
[2021-11-23] MEDS: Cyanocobalamin (Vitamin B-12) 1,000 MCG TAB PO SCH (09:56)
[2021-11-23 10:34] LABS: Chloride 98 mmol/L (98-107); Potassium 3.5 mmol/L (3.5-5.1); Sodium 133 mmol/L (136-145)
[2021-11-23 10:35] LABS: Calcium 8.3 mg/dL (7.8-10.44); Glucose 178 mg/dL (70-105)
[2021-11-23 10:37] LABS: Anion Gap 15 mmol/L (10-20); Carbon Dioxide 24 mmol/L (22-29)
[2021-11-23 10:38] LABS: Calc. Creatinine Clearance 18 mL/min (70-130)
[2021-11-23 10:39] LABS: BUN (Urea Nitrogen) 37 mg/dL (8.4-25.7)
[2021-11-23] MEDS ORDERED: READ PPD TEST SITE PO SCH (20:00)
[2021-11-24] MEDS: Midodrine HCl 5 MG TAB PO SCH ×3 (06:41→21:51)
[2021-11-24] MEDS ORDERED: Heparin 10,000 UNITS/ 10 ML VIAL ONE (11:02)
[2021-11-24] MEDS: Rifaximin 550 MG TAB PO SCH ×2 (11:30→21:51)
[2021-11-24] MEDS: Cyanocobalamin (Vitamin B-12) 1,000 MCG TAB PO SCH (13:59)
[2021-11-24] MEDS: Folic Acid 1 MG TAB PO SCH (13:59)
[2021-11-24] MEDS: Folic Acid/Vit B Comp W-C PO SCH (13:59)
[2021-11-25 04:32] LABS: #Basophils 0.1 thou/uL (0.0-0.2); #Monocytes 1.4 thou/uL (0.11-0.59); #Neutrophils 7.9 thou/uL (1.40-6.50); %Basophils 0.6 % (0.0-1.0); %Eosinophils 0.5 % (0.0-10.0); %Lymphocytes 9.4 % (21.0-51.0); %Monocytes 13.5 % (0.0-10.0); %Neutrophils 76.1 % (42.0-75.0); Hemoglobin 10.4 g/dL (14.0-18.0); Mean Platelet Volume 7.8 fL (7.4-10.4); Platelet Count 47 thou/uL (130-400); RBC Distribution Width 18.4 % (11.5-14.5); Red Blood Cell (RBC) Count 2.88 mill/uL (4.70-6.10); White Blood Cell (WBC) Count 10.3 thou/uL (4.8-10.8)
[2021-11-25] MEDS: Midodrine HCl 5 MG TAB PO SCH ×3 (06:46→21:50)
[2021-11-25 08:32] LABS: Calcium 8.4 mg/dL (7.8-10.44); Chloride 98 mmol/L (98-107); Potassium 3.7 mmol/L (3.5-5.1); Sodium 135 mmol/L (136-145)
[2021-11-25 08:33] LABS: Glucose 121 mg/dL (70-105)
[2021-11-25] MEDS: Folic Acid 1 MG TAB PO SCH (08:33)
[2021-11-25 08:34] LABS: Anion Gap 15 mmol/L (10-20); Carbon Dioxide 26 mmol/L (22-29)
[2021-11-25] MEDS: Cyanocobalamin (Vitamin B-12) 1,000 MCG TAB PO SCH (08:34)
[2021-11-25] MEDS: Folic Acid/Vit B Comp W-C PO SCH (08:34)
[2021-11-25] MEDS: Rifaximin 550 MG TAB PO SCH ×2 (08:34→21:50)
[2021-11-25 08:36] LABS: Calc. Creatinine Clearance 21 mL/min (70-130)
[2021-11-25 08:37] LABS: BUN (Urea Nitrogen) 30 mg/dL (8.4-25.7)
[2021-11-25] MEDS: HumaLOG 300 UNITS/3 ML VIAL SC PRN (17:13)
[2021-11-26] MEDS: Midodrine HCl 5 MG TAB PO SCH ×3 (05:19→22:08)
[2021-11-26 05:58] LABS: Band 15 % (5-11); Hemoglobin 10.2 g/dL (14.0-18.0); Hypochromia SLIGHT = 6-15 cells (100X) (0-5/hpf); Lymphocytes 4 % (21-51); MDiff Complete? YES; Macrocytosis SLIGHT = 6-15 cells (100X) (0-5/hpf); Mean Corpuscular HGB CONC 33.2 g/dL (32.0-36.0); Mean Corpuscular Hemoglobin 35.3 pg (27.0-31.0); Mean Platelet Volume 8.1 fL (7.4-10.4); Monocytes 15 % (0-10); Neutrophil 66 % (42-75); Platelet Count 47 thou/uL (130-400); Platelet Morphology Comment Appears Decreased; RBC Distribution Width 18.8 % (11.5-14.5); Red Blood Cell (RBC) Count 2.89 mill/uL (4.70-6.10); White Blood Cell (WBC) Count 10.2 thou/uL (4.8-10.8)
[2021-11-26 06:08] LABS: Anion Gap 18 mmol/L (10-20); BUN (Urea Nitrogen) 41 mg/dL (8.4-25.7); Calc. Creatinine Clearance 16 mL/min (70-130); Calcium 8.5 mg/dL (7.8-10.44); Carbon Dioxide 23 mmol/L (22-29); Chloride 96 mmol/L (98-107); Glucose 160 mg/dL (70-105); Potassium 3.7 mmol/L (3.5-5.1); Sodium 133 mmol/L (136-145)
[2021-11-26] MEDS: Folic Acid 1 MG TAB PO SCH (08:48)
[2021-11-26] MEDS: Rifaximin 550 MG TAB PO SCH ×2 (08:49→20:29)
[2021-11-26] MEDS: Cyanocobalamin (Vitamin B-12) 1,000 MCG TAB PO SCH (08:49)
[2021-11-26] MEDS: Folic Acid/Vit B Comp W-C PO SCH (08:49)
[2021-11-26] MEDS: HumaLOG 300 UNITS/3 ML VIAL SC PRN ×2 (12:25→17:33)
[2021-11-27] MEDS: Midodrine HCl 5 MG TAB PO SCH ×3 (06:03→20:54)
[2021-11-27] MEDS: HumaLOG 300 UNITS/3 ML VIAL SC PRN ×2 (06:04→20:55)
[2021-11-27] MEDS: Rifaximin 550 MG TAB PO SCH ×2 (08:42→20:53)
[2021-11-27] MEDS ORDERED: Heparin 10,000 UNITS/ 10 ML VIAL ONE (11:09)
[2021-11-27] MEDS: Cyanocobalamin (Vitamin B-12) 1,000 MCG TAB PO SCH (14:43)
[2021-11-27] MEDS: Folic Acid/Vit B Comp W-C PO SCH (14:43)
[2021-11-27] MEDS: Folic Acid 1 MG TAB PO SCH (14:43)
[2021-11-28] MEDS: Midodrine HCl 5 MG TAB PO SCH ×3 (06:25→23:00)
[2021-11-28 07:28] LABS: Anion Gap 14 mmol/L (10-20); BUN (Urea Nitrogen) 35 mg/dL (8.4-25.7); Calc. Creatinine Clearance 22 mL/min (70-130); Calcium 8.6 mg/dL (7.8-10.44); Carbon Dioxide 26 mmol/L (22-29); Chloride 97 mmol/L (98-107); Glucose 111 mg/dL (70-105); Potassium 3.9 mmol/L (3.5-5.1); Sodium 133 mmol/L (136-145)
[2021-11-28] MEDS: Folic Acid 1 MG TAB PO SCH (08:22)
[2021-11-28] MEDS: Folic Acid/Vit B Comp W-C PO SCH (08:22)
[2021-11-28] MEDS: Rifaximin 550 MG TAB PO SCH ×2 (08:22→20:15)
[2021-11-28] MEDS: Cyanocobalamin (Vitamin B-12) 1,000 MCG TAB PO SCH (08:22)
[2021-11-29] MEDS: Midodrine HCl 5 MG TAB PO SCH ×3 (05:11→21:50)
[2021-11-29 06:08] LABS: Mean Corpuscular HGB CONC 32.8 g/dL (32.0-36.0); Mean Corpuscular Hemoglobin 35.9 pg (27.0-31.0); Mean Platelet Volume 7.9 fL (7.4-10.4); Platelet Count 51 thou/uL (130-400); RBC Distribution Width 19.8 % (11.5-14.5); Red Blood Cell (RBC) Count 2.78 mill/uL (4.70-6.10); White Blood Cell (WBC) Count 9.3 thou/uL (4.8-10.8)
[2021-11-29 06:09] LABS: Band 15 % (5-11); Eosinophils 1 % (0-10); Hypochromia SLIGHT = 6-15 cells (100X) (0-5/hpf); Lymphocytes 3 % (21-51); MDiff Complete? YES; Macrocytosis SLIGHT = 6-15 cells (100X) (0-5/hpf); Monocytes 13 % (0-10); Neutrophil 68 % (42-75); Platelet Morphology Comment Appears Decreased; Polychromasia SLIGHT = 2-3 cells (100X) (0-2/hpf); Target Cells SLIGHT = 2-5 cells (100X) (0-1/hpf)
[2021-11-29 06:19] LABS: ALT (SGPT) 28 U/L (8-55); AST (SGOT) 53 U/L (5-34); Albumin 2.3 g/dL (3.5-5.0); Alkaline Phosphatase 172 U/L (40-110); Anion Gap 15 mmol/L (10-20); BUN (Urea Nitrogen) 47 mg/dL (8.4-25.7); Bilirubin, Total 9.8 mg/dL (0.2-1.2); Calc. Creatinine Clearance 17 mL/min (70-130); Calcium 8.6 mg/dL (7.8-10.44); Carbon Dioxide 24 mmol/L (22-29); Chloride 95 mmol/L (98-107); Glucose 118 mg/dL (70-105); Magnesium 1.5 mg/dL (1.6-2.6); Phosphorus 5.4 mg/dL (2.3-4.7); Protein, Total 6.3 g/dL (6.0-8.3); Sodium 130 mmol/L (136-145)
[2021-11-29] MEDS: Rifaximin 550 MG TAB PO SCH ×2 (07:59→20:06)
[2021-11-29] MEDS: Folic Acid 1 MG TAB PO SCH (07:59)
[2021-11-29] MEDS: Folic Acid/Vit B Comp W-C PO SCH (07:59)
[2021-11-29] MEDS: Cyanocobalamin (Vitamin B-12) 1,000 MCG TAB PO SCH (07:59)
[2021-11-29] MEDS ORDERED: Magnesium 2 GM/50 ML(in water) 2 GM in Premix Bag 1 BAG IVPB SCH (08:15)
[2021-11-29] MEDS ORDERED: Heparin 10,000 UNITS/ 10 ML VIAL ONE (09:43)
[2021-11-29] MEDS: HumaLOG 300 UNITS/3 ML VIAL SC PRN (17:23)
[2021-11-30] MEDS: Midodrine HCl 5 MG TAB PO SCH ×3 (05:03→20:37)
[2021-11-30] MEDS: Fentanyl 100 MCG/2 ML VIAL SLOW IVP PRN (05:40)
[2021-11-30 07:32] LABS: Hemoglobin 10.2 g/dL (14.0-18.0); Mean Corpuscular HGB CONC 32.7 g/dL (32.0-36.0); Mean Corpuscular Hemoglobin 36.8 pg (27.0-31.0); Mean Platelet Volume 7.6 fL (7.4-10.4); Platelet Count 55 thou/uL (130-400); RBC Distribution Width 20.1 % (11.5-14.5); Red Blood Cell (RBC) Count 2.77 mill/uL (4.70-6.10); White Blood Cell (WBC) Count 16.9 thou/uL (4.8-10.8)
[2021-11-30 08:11] LABS: Anion Gap 14 mmol/L (10-20); BUN (Urea Nitrogen) 40 mg/dL (8.4-25.7); Calc. Creatinine Clearance 19 mL/min (70-130); Calcium 8.6 mg/dL (7.8-10.44); Carbon Dioxide 25 mmol/L (22-29); Chloride 96 mmol/L (98-107); Glucose 142 mg/dL (70-105); Potassium 4.4 mmol/L (3.5-5.1); Sodium 131 mmol/L (136-145)
[2021-11-30 08:24] LABS: Band 29 % (5-11); Lymphocytes 2 % (21-51); MDiff Complete? YES; Macrocytosis MODERATE=16-30 cells (100X) (0-5/hpf); Monocytes 11 % (0-10); Myelocyte 1 % (0-0); Neutrophil 57 % (42-75); Platelet Morphology Comment Appears Decreased; Polychromasia SLIGHT = 2-3 cells (100X) (0-2/hpf); Vacuoles MODERATE
[2021-11-30] MEDS: Folic Acid/Vit B Comp W-C PO SCH (08:36)
[2021-11-30] MEDS: Folic Acid 1 MG TAB PO SCH (08:36)
[2021-11-30] MEDS: Cyanocobalamin (Vitamin B-12) 1,000 MCG TAB PO SCH (08:36)
[2021-11-30] MEDS: Rifaximin 550 MG TAB PO SCH ×2 (08:36→20:37)
[2021-11-30] MEDS ORDERED: cefTRIAXone\\ROCEPHIN 1 GM in Sodium Chloride 0.9% 100 ML IVPB SCH (10:00)
[2021-11-30] MEDS ORDERED: Sodium Bicarbonate 2.5 MEQ/5 ML VIAL ONE (10:15)
[2021-11-30] MEDS ORDERED: Lidocaine 1% PF 5 ML VIAL ONE (10:15)
[2021-11-30] MEDS: HumaLOG 300 UNITS/3 ML VIAL SC PRN ×3 (11:49→20:39)
[2021-11-30 12:57] LABS: RBC Count-Automated (BF) 140 /cu.mm; WBC/Nucleated-Auto (BF) 86 /cu.mm
[2021-11-30 13:19] LABS: BF Color Yellow; Body Fluid Source Ascites Body Fluid; Clarity Clear (Clear); Tube # EDTA
[2021-11-30 13:21] LABS: BF Segmented Neutrophils 17 %; Cell Count Non Hematic 64 %; Lymphocytes 19 %
[2021-11-30] MEDS: Acetaminophen 325 MG TAB PO PRN (20:37)
[2021-12-01] MEDS: Midodrine HCl 5 MG TAB PO SCH ×3 (05:46→20:23)
[2021-12-01] MEDS: HumaLOG 300 UNITS/3 ML VIAL SC PRN ×2 (05:46→20:23)
[2021-12-01 06:32] LABS: Band 19 % (5-11); Hemoglobin 9.9 g/dL (14.0-18.0); Lymphocytes 3 % (21-51); MDiff Complete? YES; Macrocytosis SLIGHT = 6-15 cells (100X) (0-5/hpf); Mean Corpuscular HGB CONC 32.7 g/dL (32.0-36.0); Mean Corpuscular Hemoglobin 37.1 pg (27.0-31.0); Mean Platelet Volume 7.7 fL (7.4-10.4); Monocytes 20 % (0-10); Neutrophil 58 % (42-75); Platelet Count 47 thou/uL (130-400); Platelet Morphology Comment Appears Decreased; RBC Distribution Width 19.9 % (11.5-14.5); Red Blood Cell (RBC) Count 2.67 mill/uL (4.70-6.10); White Blood Cell (WBC) Count 10.4 thou/uL (4.8-10.8)
[2021-12-01 06:33] LABS: Anion Gap 11 mmol/L (10-20); BUN (Urea Nitrogen) 51 mg/dL (8.4-25.7); Calc. Creatinine Clearance 17 mL/min (70-130); Calcium 8.3 mg/dL (7.8-10.44); Carbon Dioxide 28 mmol/L (22-29); Chloride 97 mmol/L (98-107); Glucose 145 mg/dL (70-105); Sodium 132 mmol/L (136-145)
[2021-12-01] MEDS: Folic Acid/Vit B Comp W-C PO SCH (09:15)
[2021-12-01] MEDS: cefTRIAXone\\ROCEPHIN 1 GM in Sodium Chloride 0.9% 100 ML IVPB SCH (09:19)
[2021-12-01] MEDS ORDERED: Heparin 10,000 UNITS/ 10 ML VIAL ONE (09:21)
[2021-12-01] MEDS: Albumin 25% 25 GM/100 ML BOT IVPB SCH ×5 (11:30→23:00)
[2021-12-01] MEDS: Cyanocobalamin (Vitamin B-12) 1,000 MCG TAB PO SCH (15:13)
[2021-12-01] MEDS: Rifaximin 550 MG TAB PO SCH ×2 (15:13→20:23)
[2021-12-01] MEDS: Folic Acid 1 MG TAB PO SCH (15:13)
[2021-12-02] MEDS: Midodrine HCl 5 MG TAB PO SCH ×3 (06:08→21:14)
[2021-12-02] MEDS: Albumin 25% 25 GM/100 ML BOT IVPB SCH (06:08)
[2021-12-02 06:43] LABS: Anion Gap 8 mmol/L (10-20); BUN (Urea Nitrogen) 32 mg/dL (8.4-25.7); Calc. Creatinine Clearance 27 mL/min (70-130); Calcium 8.5 mg/dL (7.8-10.44); Carbon Dioxide 33 mmol/L (22-29); Chloride 98 mmol/L (98-107); Glucose 126 mg/dL (70-105); Potassium 3.6 mmol/L (3.5-5.1); Sodium 135 mmol/L (136-145)
[2021-12-02] MEDS: cefTRIAXone\\ROCEPHIN 1 GM in Sodium Chloride 0.9% 100 ML IVPB SCH (09:55)
[2021-12-02] MEDS: Rifaximin 550 MG TAB PO SCH ×2 (09:55→21:10)
[2021-12-02] MEDS: Cyanocobalamin (Vitamin B-12) 1,000 MCG TAB PO SCH (09:55)
[2021-12-02] MEDS: Folic Acid 1 MG TAB PO SCH (09:55)
[2021-12-02] MEDS: Folic Acid/Vit B Comp W-C PO SCH (09:55)
[2021-12-02] MEDS: Fentanyl 100 MCG/2 ML VIAL SLOW IVP PRN (21:16)
[2021-12-02] MEDS: HumaLOG 300 UNITS/3 ML VIAL SC PRN (21:49)
[2021-12-03] MEDS: Midodrine HCl 5 MG TAB PO SCH ×3 (05:32→20:52)
[2021-12-03 06:27] LABS: Anion Gap 17 mmol/L (10-20); BUN (Urea Nitrogen) 47 mg/dL (8.4-25.7); Calc. Creatinine Clearance 23 mL/min (70-130); Calcium 8.7 mg/dL (7.8-10.44); Carbon Dioxide 24 mmol/L (22-29); Chloride 96 mmol/L (98-107); Glucose 148 mg/dL (70-105); Potassium 3.5 mmol/L (3.5-5.1); Sodium 133 mmol/L (136-145)
[2021-12-03] MEDS: cefTRIAXone\\ROCEPHIN 1 GM in Sodium Chloride 0.9% 100 ML IVPB SCH (09:22)
[2021-12-03] MEDS: Folic Acid/Vit B Comp W-C PO SCH (09:22)
[2021-12-03] MEDS: Rifaximin 550 MG TAB PO SCH ×2 (09:22→20:52)
[2021-12-03] MEDS: Cyanocobalamin (Vitamin B-12) 1,000 MCG TAB PO SCH (09:22)
[2021-12-03] MEDS: Folic Acid 1 MG TAB PO SCH (09:22)
[2021-12-03] MEDS: HumaLOG 300 UNITS/3 ML VIAL SC PRN (20:55)
[2021-12-04] MEDS: Midodrine HCl 5 MG TAB PO SCH ×3 (05:58→21:06)
[2021-12-04 08:34] LABS: Anion Gap 16 mmol/L (10-20); BUN (Urea Nitrogen) 54 mg/dL (8.4-25.7); Calc. Creatinine Clearance 22 mL/min (70-130); Calcium 8.9 mg/dL (7.8-10.44); Carbon Dioxide 25 mmol/L (22-29); Chloride 96 mmol/L (98-107); Glucose 144 mg/dL (70-105); Potassium 3.7 mmol/L (3.5-5.1); Sodium 133 mmol/L (136-145)
[2021-12-04 08:36] LABS: Hemoglobin 10.4 g/dL (14.0-18.0); Mean Corpuscular HGB CONC 32.8 g/dL (32.0-36.0); Mean Platelet Volume 7.9 fL (7.4-10.4); Platelet Count 52 thou/uL (130-400); RBC Distribution Width 19.4 % (11.5-14.5); Red Blood Cell (RBC) Count 2.74 mill/uL (4.70-6.10)
[2021-12-04] MEDS: Fentanyl 100 MCG/2 ML VIAL SLOW IVP PRN (08:51)
[2021-12-04] MEDS ORDERED: Heparin 10,000 UNITS/ 10 ML VIAL ONE (09:23)
[2021-12-04 09:44] LABS: Band 9 % (5-11); Lymphocytes 1 % (21-51); MDiff Complete? YES; Macrocytosis SLIGHT = 6-15 cells (100X) (0-5/hpf); Metamyelocyte 1 % (0-0); Monocytes 11 % (0-10); Neutrophil 78 % (42-75); Platelet Morphology Comment Appears Decreased; Polychromasia SLIGHT = 2-3 cells (100X) (0-2/hpf)
[2021-12-04] MEDS: Albumin 25% 25 GM/100 ML BOT IVPB SCH ×3 (09:56→21:07)
[2021-12-04] MEDS: cefTRIAXone\\ROCEPHIN 1 GM in Sodium Chloride 0.9% 100 ML IVPB SCH (14:08)
[2021-12-04] MEDS: Folic Acid/Vit B Comp W-C PO SCH (14:08)
[2021-12-04] MEDS: Folic Acid 1 MG TAB PO SCH (14:08)
[2021-12-04] MEDS: Rifaximin 550 MG TAB PO SCH ×2 (14:08→21:06)
[2021-12-04] MEDS: Cyanocobalamin (Vitamin B-12) 1,000 MCG TAB PO SCH (14:08)
[2021-12-05] MEDS: Albumin 25% 25 GM/100 ML BOT IVPB SCH (03:08)
[2021-12-05] MEDS: Midodrine HCl 5 MG TAB PO SCH ×3 (05:17→20:33)
[2021-12-05] MEDS: HumaLOG 300 UNITS/3 ML VIAL SC PRN ×2 (05:17→11:58)
[2021-12-05 05:45] LABS: #Eosinphils 0.1 thou/uL (0.0-0.7); #Lymphocytes 0.6 thou/uL (1.20-3.40); #Monocytes 1.2 thou/uL (0.11-0.59); #Neutrophils 9.5 thou/uL (1.40-6.50); %Basophils 0.4 % (0.0-1.0); %Eosinophils 0.9 % (0.0-10.0); %Lymphocytes 5.6 % (21.0-51.0); %Neutrophils 83.1 % (42.0-75.0); Hemoglobin 8.7 g/dL (14.0-18.0); Mean Corpuscular HGB CONC 32.8 g/dL (32.0-36.0); Mean Corpuscular Hemoglobin 38.2 pg (27.0-31.0); Mean Platelet Volume 8.5 fL (7.4-10.4); Platelet Count 46 thou/uL (130-400); RBC Distribution Width 19.7 % (11.5-14.5); Red Blood Cell (RBC) Count 2.29 mill/uL (4.70-6.10); White Blood Cell (WBC) Count 11.5 thou/uL (4.8-10.8)
[2021-12-05 06:31] LABS: Anion Gap 19 mmol/L (10-20); BUN (Urea Nitrogen) 35 mg/dL (8.4-25.7); Calc. Creatinine Clearance 32 mL/min (70-130); Calcium 9.1 mg/dL (7.8-10.44); Carbon Dioxide 22 mmol/L (22-29); Chloride 98 mmol/L (98-107); Glucose 141 mg/dL (70-105); Magnesium 1.8 mg/dL (1.6-2.6); Phosphorus 3.3 mg/dL (2.3-4.7); Potassium 3.4 mmol/L (3.5-5.1); Sodium 136 mmol/L (136-145)
[2021-12-05] MEDS: cefTRIAXone\\ROCEPHIN 1 GM in Sodium Chloride 0.9% 100 ML IVPB SCH (08:30)
[2021-12-05] MEDS: Cyanocobalamin (Vitamin B-12) 1,000 MCG TAB PO SCH (08:31)
[2021-12-05] MEDS: Folic Acid 1 MG TAB PO SCH (08:31)
[2021-12-05] MEDS: Rifaximin 550 MG TAB PO SCH ×2 (08:31→20:32)
[2021-12-05] MEDS: Folic Acid/Vit B Comp W-C PO SCH (08:31)
[2021-12-06] MEDS: Midodrine HCl 5 MG TAB PO SCH ×3 (05:29→21:08)
[2021-12-06] MEDS: HumaLOG 300 UNITS/3 ML VIAL SC PRN (05:29)
[2021-12-06 06:10] LABS: #Basophils 0.1 thou/uL (0.0-0.2); #Eosinphils 0.1 thou/uL (0.0-0.7); #Lymphocytes 0.7 thou/uL (1.20-3.40); #Monocytes 1.3 thou/uL (0.11-0.59); #Neutrophils 11.2 thou/uL (1.40-6.50); %Basophils 0.6 % (0.0-1.0); %Eosinophils 0.8 % (0.0-10.0); %Lymphocytes 5.1 % (21.0-51.0); %Monocytes 9.4 % (0.0-10.0); %Neutrophils 84.1 % (42.0-75.0); Hemoglobin 9.3 g/dL (14.0-18.0); Mean Corpuscular HGB CONC 32.2 g/dL (32.0-36.0); Mean Corpuscular Hemoglobin 37.6 pg (27.0-31.0); Mean Platelet Volume 8.3 fL (7.4-10.4); Platelet Count 59 thou/uL (130-400); RBC Distribution Width 19.5 % (11.5-14.5); Red Blood Cell (RBC) Count 2.48 mill/uL (4.70-6.10); White Blood Cell (WBC) Count 13.3 thou/uL (4.8-10.8)
[2021-12-06 06:26] LABS: Anion Gap 18 mmol/L (10-20); BUN (Urea Nitrogen) 43 mg/dL (8.4-25.7); Calc. Creatinine Clearance 27 mL/min (70-130); Calcium 8.8 mg/dL (7.8-10.44); Carbon Dioxide 22 mmol/L (22-29); Chloride 98 mmol/L (98-107); Glucose 137 mg/dL (70-105); Potassium 3.5 mmol/L (3.5-5.1); Sodium 134 mmol/L (136-145)
[2021-12-06] MEDS ORDERED: Heparin 10,000 UNITS/ 10 ML VIAL ONE (09:28)
[2021-12-06] MEDS: cefTRIAXone\\ROCEPHIN 1 GM in Sodium Chloride 0.9% 100 ML IVPB SCH (13:16)
[2021-12-06] MEDS: Rifaximin 550 MG TAB PO SCH ×2 (13:17→21:08)
[2021-12-06] MEDS: Cyanocobalamin (Vitamin B-12) 1,000 MCG TAB PO SCH (13:17)
[2021-12-06] MEDS: Folic Acid 1 MG TAB PO SCH (13:17)
[2021-12-06] MEDS: Folic Acid/Vit B Comp W-C PO SCH (13:20)
[2021-12-07] MEDS: Midodrine HCl 5 MG TAB PO SCH ×3 (05:58→21:04)
[2021-12-07 06:59] LABS: Anion Gap 15 mmol/L (10-20); BUN (Urea Nitrogen) 34 mg/dL (8.4-25.7); Calc. Creatinine Clearance 36 mL/min (70-130); Calcium 8.6 mg/dL (7.8-10.44); Carbon Dioxide 27 mmol/L (22-29); Chloride 96 mmol/L (98-107); Glucose 134 mg/dL (70-105); Potassium 3.5 mmol/L (3.5-5.1); Sodium 134 mmol/L (136-145)
[2021-12-07] MEDS: cefTRIAXone\\ROCEPHIN 1 GM in Sodium Chloride 0.9% 100 ML IVPB SCH (07:59)
[2021-12-07] MEDS: Rifaximin 550 MG TAB PO SCH ×2 (08:00→21:04)
[2021-12-07] MEDS: Cyanocobalamin (Vitamin B-12) 1,000 MCG TAB PO SCH (08:00)
[2021-12-07] MEDS: Folic Acid 1 MG TAB PO SCH (08:00)
[2021-12-07] MEDS: Folic Acid/Vit B Comp W-C PO SCH (08:00)
[2021-12-08] MEDS: Midodrine HCl 5 MG TAB PO SCH ×3 (05:27→21:34)
[2021-12-08 06:01] LABS: #Eosinphils 0.1 thou/uL (0.0-0.7); #Lymphocytes 0.7 thou/uL (1.20-3.40); #Monocytes 1.4 thou/uL (0.11-0.59); #Neutrophils 14.3 thou/uL (1.40-6.50); %Eosinophils 0.8 % (0.0-10.0); %Lymphocytes 4.5 % (21.0-51.0); %Monocytes 8.5 % (0.0-10.0); %Neutrophils 86.3 % (42.0-75.0); Hemoglobin 9.5 g/dL (14.0-18.0); Mean Corpuscular Hemoglobin 38.9 pg (27.0-31.0); Mean Platelet Volume 8.1 fL (7.4-10.4); Platelet Count 63 thou/uL (130-400); RBC Distribution Width 18.8 % (11.5-14.5); Red Blood Cell (RBC) Count 2.43 mill/uL (4.70-6.10); White Blood Cell (WBC) Count 16.6 thou/uL (4.8-10.8)
[2021-12-08 06:22] LABS: Anion Gap 13 mmol/L (10-20); BUN (Urea Nitrogen) 46 mg/dL (8.4-25.7); Calc. Creatinine Clearance 33 mL/min (70-130); Calcium 8.6 mg/dL (7.8-10.44); Carbon Dioxide 27 mmol/L (22-29); Chloride 95 mmol/L (98-107); Glucose 145 mg/dL (70-105); Potassium 3.6 mmol/L (3.5-5.1); Sodium 131 mmol/L (136-145)
[2021-12-08] MEDS: cefTRIAXone\\ROCEPHIN 1 GM in Sodium Chloride 0.9% 100 ML IVPB SCH (08:14)
[2021-12-08] MEDS: Cyanocobalamin (Vitamin B-12) 1,000 MCG TAB PO SCH (08:15)
[2021-12-08] MEDS: Folic Acid 1 MG TAB PO SCH (08:15)
[2021-12-08] MEDS: Folic Acid/Vit B Comp W-C PO SCH (08:15)
[2021-12-08] MEDS: Rifaximin 550 MG TAB PO SCH ×2 (08:15→21:34)
[2021-12-08] MEDS ORDERED: Heparin 10,000 UNITS/ 10 ML VIAL ONE (08:33)
[2021-12-08 11:46] LABS: INR-International Normal Ratio 1.8; PTT 41.4 sec (22.9-36.1); Prothrombin Time 20.7 sec (12.0-14.7)
[2021-12-08] MEDS: Fentanyl 100 MCG/2 ML VIAL SLOW IVP PRN ×2 (14:18→21:35)
[2021-12-09] MEDS: Midodrine HCl 5 MG TAB PO SCH ×3 (06:14→21:11)
[2021-12-09 06:39] LABS: Hemoglobin 9.2 g/dL (14.0-18.0); Mean Corpuscular HGB CONC 31.7 g/dL (32.0-36.0); Mean Corpuscular Hemoglobin 37.4 pg (27.0-31.0); Mean Platelet Volume 8.4 fL (7.4-10.4); Platelet Count 54 thou/uL (130-400); RBC Distribution Width 18.4 % (11.5-14.5); Red Blood Cell (RBC) Count 2.47 mill/uL (4.70-6.10)
[2021-12-09 06:56] LABS: Band 5 % (5-11); Lymphocytes 1 % (21-51); MDiff Complete? YES; Macrocytosis SLIGHT = 6-15 cells (100X) (0-5/hpf); Monocytes 5 % (0-10); Neutrophil 89 % (42-75); Platelet Morphology Comment Appears Decreased
[2021-12-09 06:59] LABS: Anion Gap 15 mmol/L (10-20); BUN (Urea Nitrogen) 41 mg/dL (8.4-25.7); Calc. Creatinine Clearance 37 mL/min (70-130); Calcium 8.4 mg/dL (7.8-10.44); Carbon Dioxide 25 mmol/L (22-29); Chloride 95 mmol/L (98-107); Glucose 142 mg/dL (70-105); Potassium 3.8 mmol/L (3.5-5.1); Sodium 131 mmol/L (136-145)
[2021-12-09] MEDS: Rifaximin 550 MG TAB PO SCH ×2 (08:59→21:10)
[2021-12-09] MEDS: Folic Acid/Vit B Comp W-C PO SCH (08:59)
[2021-12-09] MEDS: Cyanocobalamin (Vitamin B-12) 1,000 MCG TAB PO SCH (08:59)
[2021-12-09] MEDS: Folic Acid 1 MG TAB PO SCH (08:59)
[2021-12-09] MEDS: cefTRIAXone\\ROCEPHIN 1 GM in Sodium Chloride 0.9% 100 ML IVPB SCH (09:00)
[2021-12-09] MEDS ORDERED: Lidocaine 1% PF 5 ML VIAL ONE (11:39)
[2021-12-09] MEDS ORDERED: Sodium Bicarbonate 2.5 MEQ/5 ML VIAL ONE (11:39)
[2021-12-09] MEDS: Albumin 25% 25 GM/100 ML BOT IVPB SCH ×2 (13:33→18:31)
[2021-12-09 14:08] LABS: RBC Count-Automated (BF) 151 /cu.mm; WBC/Nucleated-Auto (BF) 162 /cu.mm
[2021-12-09 14:12] LABS: BF Color Yellow; Body Fluid Source Ascites Body Fluid; Clarity Hazy (Clear); Tube # EDTA
[2021-12-09 14:37] LABS: BF Segmented Neutrophils 27 %; Cell Count Non Hematic 54 %; Lymphocytes 19 %
[2021-12-09] MEDS: HumaLOG 300 UNITS/3 ML VIAL SC PRN (16:39)
[2021-12-09 16:42] LABS: Bilirubin 1+ (Negative); Blood, Urine 2+ (Negative); Clarity Turbid (Clear); Glucose, Urine (Dipstick) Normal (Negative); Ketone, Urine Negative (Negative); Leukocyte 250 Leu/uL (Negative); Nitrite Negative (Negative); Protein, Urine (Dipstick) 30 mg/dL (Neg-Trace); Specific Gravity, Urine 1.017 (1.002-1.036); Squamous Epithelial 0-3 HPF (0-3); Yeast-Budding 1+ HPF (None Seen)
[2021-12-09 16:55] LABS: Bacteria/HPF Rare-Few HPF (None Seen)
[2021-12-09 16:56] LABS: Yeast-Hyphae 1+ HPF (None Seen)
[2021-12-09 16:57] LABS: Urine Culture Reflex Yes Yes
[2021-12-10] MEDS: Albumin 25% 25 GM/100 ML BOT IVPB SCH ×2 (01:24→06:25)
[2021-12-10] MEDS: Midodrine HCl 5 MG TAB PO SCH ×3 (05:53→21:36)
[2021-12-10 06:57] LABS: Anion Gap 14 mmol/L (10-20); BUN (Urea Nitrogen) 54 mg/dL (8.4-25.7); Calc. Creatinine Clearance 37 mL/min (70-130); Calcium 8.6 mg/dL (7.8-10.44); Carbon Dioxide 26 mmol/L (22-29); Chloride 96 mmol/L (98-107); Glucose 139 mg/dL (70-105); Potassium 3.4 mmol/L (3.5-5.1); Sodium 133 mmol/L (136-145)
[2021-12-10] MEDS: cefTRIAXone\\ROCEPHIN 1 GM in Sodium Chloride 0.9% 100 ML IVPB SCH (08:07)
[2021-12-10] MEDS: Cyanocobalamin (Vitamin B-12) 1,000 MCG TAB PO SCH (08:08)
[2021-12-10] MEDS: Rifaximin 550 MG TAB PO SCH ×2 (08:09→21:35)
[2021-12-10] MEDS: Folic Acid 1 MG TAB PO SCH (08:09)
[2021-12-10] MEDS: Folic Acid/Vit B Comp W-C PO SCH (08:09)
[2021-12-10 09:01] LABS: #Eosinphils 0.1 thou/uL (0.0-0.7); #Lymphocytes 0.8 thou/uL (1.20-3.40); #Monocytes 1.1 thou/uL (0.11-0.59); #Neutrophils 14.4 thou/uL (1.40-6.50); %Basophils 0.1 % (0.0-1.0); %Eosinophils 0.6 % (0.0-10.0); %Lymphocytes 4.9 % (21.0-51.0); %Monocytes 6.4 % (0.0-10.0); Hemoglobin 8.8 g/dL (14.0-18.0); Mean Corpuscular HGB CONC 32.1 g/dL (32.0-36.0); Mean Corpuscular Hemoglobin 38.2 pg (27.0-31.0); Mean Platelet Volume 8.9 fL (7.4-10.4); Platelet Count 51 thou/uL (130-400); RBC Distribution Width 18.1 % (11.5-14.5); White Blood Cell (WBC) Count 16.4 thou/uL (4.8-10.8)
[2021-12-10 09:14] LABS: MDiff Complete? YES; Macrocytosis MODERATE=16-30 cells (100X) (0-5/hpf); Platelet Morphology Comment Appears Decreased; Polychromasia SLIGHT = 2-3 cells (100X) (0-2/hpf)
[2021-12-10] MEDS: HumaLOG 300 UNITS/3 ML VIAL SC PRN ×3 (12:50→22:24)
[2021-12-11] MEDS: Midodrine HCl 5 MG TAB PO SCH ×3 (05:14→21:04)
[2021-12-11] MEDS: Cyanocobalamin (Vitamin B-12) 1,000 MCG TAB PO SCH (08:23)
[2021-12-11] MEDS: Rifaximin 550 MG TAB PO SCH ×2 (08:23→20:39)
[2021-12-11] MEDS: Folic Acid/Vit B Comp W-C PO SCH (08:23)
[2021-12-11] MEDS: Folic Acid 1 MG TAB PO SCH (08:23)
[2021-12-11] MEDS: cefTRIAXone\\ROCEPHIN 1 GM in Sodium Chloride 0.9% 100 ML IVPB SCH (08:31)
[2021-12-11 10:42] LABS: Hemoglobin 9.2 g/dL (14.0-18.0); Mean Corpuscular HGB CONC 32.3 g/dL (32.0-36.0); Mean Corpuscular Hemoglobin 37.8 pg (27.0-31.0); Mean Platelet Volume 8.2 fL (7.4-10.4); Platelet Count 48 thou/uL (130-400); RBC Distribution Width 17.9 % (11.5-14.5); Red Blood Cell (RBC) Count 2.44 mill/uL (4.70-6.10); White Blood Cell (WBC) Count 16.5 thou/uL (4.8-10.8)
[2021-12-11 11:14] LABS: Anion Gap 13 mmol/L (10-20); BUN (Urea Nitrogen) 43 mg/dL (8.4-25.7); Calc. Creatinine Clearance 54 mL/min (70-130); Calcium 8.4 mg/dL (7.8-10.44); Carbon Dioxide 27 mmol/L (22-29); Chloride 96 mmol/L (98-107); Glucose 150 mg/dL (70-105); Potassium 3.3 mmol/L (3.5-5.1); Sodium 133 mmol/L (136-145)
[2021-12-11 11:32] LABS: #Basophils 0.1 thou/uL (0.0-0.2); #Eosinphils 0.1 thou/uL (0.0-0.7); #Lymphocytes 0.7 thou/uL (1.20-3.40); #Monocytes 1.3 thou/uL (0.11-0.59); #Neutrophils 14.4 thou/uL (1.40-6.50); %Basophils 0.3 % (0.0-1.0); %Eosinophils 0.7 % (0.0-10.0); %Lymphocytes 3.9 % (21.0-51.0); %Monocytes 7.9 % (0.0-10.0); %Neutrophils 87.2 % (42.0-75.0); Band 4 % (5-11); Eosinophils 1 % (0-10); Lymphocytes 6 % (21-51); MDiff Complete? YES; Macrocytosis MODERATE=16-30 cells (100X) (0-5/hpf); Monocytes 7 % (0-10); Neutrophil 82 % (42-75); Platelet Morphology Comment Appears Decreased; Polychromasia MODERATE = 3-4 cells (100X) (0-2/hpf)
[2021-12-11] MEDS ORDERED: Heparin 10,000 UNITS/ 10 ML VIAL ONE (11:38)
[2021-12-12] MEDS: Midodrine HCl 5 MG TAB PO SCH ×3 (05:17→21:37)
[2021-12-12] MEDS: HumaLOG 300 UNITS/3 ML VIAL SC PRN ×3 (05:17→17:00)
[2021-12-12 08:00] LABS: Anion Gap 15 mmol/L (10-20); BUN (Urea Nitrogen) 40 mg/dL (8.4-25.7); Calc. Creatinine Clearance 46 mL/min (70-130); Calcium 8.4 mg/dL (7.8-10.44); Carbon Dioxide 24 mmol/L (22-29); Chloride 97 mmol/L (98-107); Glucose 142 mg/dL (70-105); Potassium 3.5 mmol/L (3.5-5.1); Sodium 132 mmol/L (136-145)
[2021-12-12] MEDS: Rifaximin 550 MG TAB PO SCH ×2 (09:12→20:02)
[2021-12-12] MEDS: Cyanocobalamin (Vitamin B-12) 1,000 MCG TAB PO SCH (09:12)
[2021-12-12] MEDS: Folic Acid/Vit B Comp W-C PO SCH (09:12)
[2021-12-12] MEDS: Folic Acid 1 MG TAB PO SCH (09:12)
[2021-12-12] MEDS: cefTRIAXone\\ROCEPHIN 1 GM in Sodium Chloride 0.9% 100 ML IVPB SCH (09:12)
[2021-12-13] MEDS: HumaLOG 300 UNITS/3 ML VIAL SC PRN (05:17)
[2021-12-13] MEDS: Midodrine HCl 5 MG TAB PO SCH ×3 (05:17→21:40)
[2021-12-13] MEDS: Folic Acid/Vit B Comp W-C PO SCH (08:31)
[2021-12-13] MEDS: Rifaximin 550 MG TAB PO SCH ×2 (08:31→20:05)
[2021-12-13] MEDS: Cyanocobalamin (Vitamin B-12) 1,000 MCG TAB PO SCH (08:31)
[2021-12-13] MEDS: Folic Acid 1 MG TAB PO SCH (08:34)
[2021-12-13] MEDS: cefTRIAXone\\ROCEPHIN 1 GM in Sodium Chloride 0.9% 100 ML IVPB SCH (09:18)
[2021-12-13] MEDS ORDERED: Heparin 10,000 UNITS/ 10 ML VIAL ONE (09:31)
[2021-12-13 09:57] LABS: Hemoglobin 9.5 g/dL (14.0-18.0); Mean Corpuscular HGB CONC 32.4 g/dL (32.0-36.0); Mean Corpuscular Hemoglobin 38.4 pg (27.0-31.0); Mean Platelet Volume 8.3 fL (7.4-10.4); Platelet Count 67 thou/uL (130-400); Red Blood Cell (RBC) Count 2.48 mill/uL (4.70-6.10); White Blood Cell (WBC) Count 17.9 thou/uL (4.8-10.8)
[2021-12-13 10:16] LABS: Anion Gap 16 mmol/L (10-20); BUN (Urea Nitrogen) 57 mg/dL (8.4-25.7); Calc. Creatinine Clearance 37 mL/min (70-130); Calcium 8.5 mg/dL (7.8-10.44); Carbon Dioxide 24 mmol/L (22-29); Chloride 93 mmol/L (98-107); Glucose 180 mg/dL (70-105); Potassium 3.8 mmol/L (3.5-5.1); Sodium 129 mmol/L (136-145)
[2021-12-13 10:41] LABS: Band 5 % (5-11); Bite Cells SLIGHT = 2-5 cells (100X) (0-1/hpf); Hypochromia SLIGHT = 6-15 cells (100X) (0-5/hpf); Lymphocytes 4 % (21-51); MDiff Complete? YES; Macrocytosis SLIGHT = 6-15 cells (100X) (0-5/hpf); Monocytes 17 % (0-10); Neutrophil 74 % (42-75); Platelet Morphology Comment Appears Decreased; Polychromasia MODERATE = 3-4 cells (100X) (0-2/hpf)
[2021-12-13] MEDS ORDERED: Morphine 4 MG/ML VIAL SLOW IVP SCH (20:45)
[2021-12-14] MEDS: HumaLOG 300 UNITS/3 ML VIAL SC PRN ×3 (05:09→17:30)
[2021-12-14] MEDS: Midodrine HCl 5 MG TAB PO SCH ×3 (05:09→21:54)
[2021-12-14 07:01] LABS: Hemoglobin 9.8 g/dL (14.0-18.0); Mean Corpuscular HGB CONC 31.3 g/dL (32.0-36.0); Mean Corpuscular Hemoglobin 38.6 pg (27.0-31.0); Mean Platelet Volume 8.4 fL (7.4-10.4); Platelet Count 68 thou/uL (130-400); Red Blood Cell (RBC) Count 2.53 mill/uL (4.70-6.10); White Blood Cell (WBC) Count 16.7 thou/uL (4.8-10.8)
[2021-12-14 07:05] LABS: Anion Gap 11 mmol/L (10-20); BUN (Urea Nitrogen) 32 mg/dL (8.4-25.7); Calc. Creatinine Clearance 51 mL/min (70-130); Calcium 8.6 mg/dL (7.8-10.44); Carbon Dioxide 28 mmol/L (22-29); Chloride 96 mmol/L (98-107); Glucose 136 mg/dL (70-105); Potassium 3.7 mmol/L (3.5-5.1); Sodium 131 mmol/L (136-145)
[2021-12-14 07:46] LABS: Band 12 % (5-11); Lymphocytes 4 % (21-51); MDiff Complete? YES; Macrocytosis MODERATE=16-30 cells (100X) (0-5/hpf); Monocytes 8 % (0-10); Neutrophil 75 % (42-75); Platelet Morphology Comment Appears Decreased; Polychromasia SLIGHT = 2-3 cells (100X) (0-2/hpf); Reactive Lymphocytes 1 % (0-10)
[2021-12-14] MEDS: Folic Acid/Vit B Comp W-C PO SCH (09:20)
[2021-12-14] MEDS: cefTRIAXone\\ROCEPHIN 1 GM in Sodium Chloride 0.9% 100 ML IVPB SCH (09:20)
[2021-12-14] MEDS: Cyanocobalamin (Vitamin B-12) 1,000 MCG TAB PO SCH (09:20)
[2021-12-14] MEDS: Rifaximin 550 MG TAB PO SCH ×2 (09:20→21:54)
[2021-12-14] MEDS: Folic Acid 1 MG TAB PO SCH (09:20)
[2021-12-14] MEDS: Albumin 25% 25 GM/100 ML BOT IVPB SCH ×3 (12:07→23:18)
[2021-12-14 23:25] VITALS: BP 112/62
[2021-12-15 00:15] LABS: Actual Bicarbonate (HCO3a) 24.7 mEq/L (22-28); Base Excess (BEa) -0.1 mEq/L (-2.0 to +3.0); CO2 Tension 41.2 mmHg (35.0-45.0); Calcium, Ionized (arterial) 1.09 mmol/L (1.12-1.30); Carboxyhemoglobin (COHb) 1.8 gm% (0.0-3.0); Hemoglobin (Hb) 9.9 g/dL (14.0-18.0); Potassium - ABG Lab 3.95 mmol/L (3.70-5.30)
[2021-12-15 00:18] LABS: Puncture Site RRA
[2021-12-15] MEDS ORDERED: Furosemide 40 MG/4 ML VIAL SLOW IVP SCH (00:30)
[2021-12-15 04:06] LABS: Anion Gap 17 mmol/L (10-20); BUN (Urea Nitrogen) 44 mg/dL (8.4-25.7); Calc. Creatinine Clearance 39 mL/min (70-130); Calcium 8.9 mg/dL (7.8-10.44); Carbon Dioxide 22 mmol/L (22-29); Chloride 95 mmol/L (98-107); Glucose 155 mg/dL (70-105); Potassium 4.3 mmol/L (3.5-5.1); Sodium 130 mmol/L (136-145)
[2021-12-15 04:56] LABS: #Eosinphils 0.2 thou/uL (0.0-0.7); #Lymphocytes 0.7 thou/uL (1.20-3.40); #Monocytes 1.6 thou/uL (0.11-0.59); #Neutrophils 16.6 thou/uL (1.40-6.50); %Basophils 0.2 % (0.0-1.0); %Eosinophils 0.9 % (0.0-10.0); %Lymphocytes 3.5 % (21.0-51.0); %Monocytes 8.4 % (0.0-10.0); %Neutrophils 86.9 % (42.0-75.0); Anisocytosis SLIGHT = 6-15 cells (100X) (0-5/hpf); Hemoglobin 8.9 g/dL (14.0-18.0); MDiff Complete? YES; Mean Corpuscular HGB CONC 31.2 g/dL (32.0-36.0); Mean Corpuscular Hemoglobin 37.8 pg (27.0-31.0); Mean Platelet Volume 8.5 fL (7.4-10.4); Platelet Count 63 thou/uL (130-400); Platelet Morphology Comment Appears Decreased; RBC Distribution Width 16.6 % (11.5-14.5); Red Blood Cell (RBC) Count 2.34 mill/uL (4.70-6.10); Target Cells SLIGHT = 2-5 cells (100X) (0-1/hpf); White Blood Cell (WBC) Count 19.1 thou/uL (4.8-10.8)
[2021-12-15 05:45] LABS: Anion Gap 17 mmol/L (10-20); BUN (Urea Nitrogen) 48 mg/dL (8.4-25.7); Calc. Creatinine Clearance 37 mL/min (70-130); Carbon Dioxide 23 mmol/L (22-29); Chloride 94 mmol/L (98-107); Glucose 162 mg/dL (70-105); Potassium 4.1 mmol/L (3.5-5.1); Sodium 130 mmol/L (136-145)
[2021-12-15] MEDS: Midodrine HCl 5 MG TAB PO SCH ×3 (06:37→22:24)
[2021-12-15] MEDS: cefTRIAXone\\ROCEPHIN 1 GM in Sodium Chloride 0.9% 100 ML IVPB SCH (10:42)
[2021-12-15] MEDS: Rifaximin 550 MG TAB PO SCH ×2 (10:42→22:24)
[2021-12-15] MEDS: Albumin 25% 25 GM/100 ML BOT IVPB SCH (10:42)
[2021-12-15] MEDS: Cyanocobalamin (Vitamin B-12) 1,000 MCG TAB PO SCH (10:43)
[2021-12-15] MEDS: Folic Acid 1 MG TAB PO SCH (10:43)
[2021-12-15] MEDS: Folic Acid/Vit B Comp W-C PO SCH (10:43)
[2021-12-15] MEDS ORDERED: Furosemide 20 MG/2 ML VIAL SLOW IVP SCH ×2 (14:00)
[2021-12-15 15:08] LABS: INR-International Normal Ratio 1.8; Prothrombin Time 20.8 sec (12.0-14.7)
[2021-12-15 15:09] LABS: PTT 45.4 sec (22.9-36.1)
[2021-12-16] MEDS ORDERED: traZODone HCl 50 MG TAB PO PRN (02:42)
[2021-12-16 04:05] LABS: Hemoglobin 9.1 g/dL (14.0-18.0); Mean Corpuscular HGB CONC 32.5 g/dL (32.0-36.0); Mean Corpuscular Hemoglobin 38.8 pg (27.0-31.0); Mean Platelet Volume 8.4 fL (7.4-10.4); Platelet Count 73 thou/uL (130-400); RBC Distribution Width 16.3 % (11.5-14.5); Red Blood Cell (RBC) Count 2.33 mill/uL (4.70-6.10)
[2021-12-16 04:24] LABS: Band 5 % (5-11); Eosinophils 1 % (0-10); Lymphocytes 1 % (21-51); MDiff Complete? YES; Macrocytosis MODERATE=16-30 cells (100X) (0-5/hpf); Monocytes 5 % (0-10); Neutrophil 88 % (42-75); Platelet Morphology Comment Appears Decreased; Toxic Granulation SLIGHT
[2021-12-16] MEDS: Midodrine HCl 5 MG TAB PO SCH ×3 (07:15→21:53)
[2021-12-16] MEDS ORDERED: Sodium Bicarbonate 2.5 MEQ/5 ML VIAL ONE (08:36)
[2021-12-16] MEDS ORDERED: Lidocaine 1% PF 5 ML VIAL ONE (08:36)
[2021-12-16] MEDS ORDERED: Heparin 10,000 UNITS/ 10 ML VIAL ONE (09:25)
[2021-12-16 09:42] LABS: Anion Gap 18 mmol/L (10-20); BUN (Urea Nitrogen) 65 mg/dL (8.4-25.7); Calc. Creatinine Clearance 31 mL/min (70-130); Calcium 8.9 mg/dL (7.8-10.44); Carbon Dioxide 22 mmol/L (22-29); Chloride 94 mmol/L (98-107); Glucose 181 mg/dL (70-105); Potassium 4.4 mmol/L (3.5-5.1); Sodium 130 mmol/L (136-145)
[2021-12-16] MEDS: Folic Acid/Vit B Comp W-C PO SCH (10:38)
[2021-12-16] MEDS: Rifaximin 550 MG TAB PO SCH ×2 (10:38→21:53)
[2021-12-16] MEDS: Cyanocobalamin (Vitamin B-12) 1,000 MCG TAB PO SCH (10:38)
[2021-12-16] MEDS: Folic Acid 1 MG TAB PO SCH (10:38)
[2021-12-16] MEDS: cefTRIAXone\\ROCEPHIN 1 GM in Sodium Chloride 0.9% 100 ML IVPB SCH (10:41)
[2021-12-16] MEDS ORDERED: Albumin 25% 25 GM/100 ML BOT IVPB SCH (11:15)
[2021-12-17 06:29] LABS: Anion Gap 18 mmol/L (10-20); BUN (Urea Nitrogen) 43 mg/dL (8.4-25.7); Calc. Creatinine Clearance 39 mL/min (70-130); Carbon Dioxide 23 mmol/L (22-29); Chloride 96 mmol/L (98-107); Glucose 193 mg/dL (70-105); Potassium 4.1 mmol/L (3.5-5.1); Sodium 133 mmol/L (136-145)
[2021-12-17] MEDS: Midodrine HCl 5 MG TAB PO SCH ×2 (06:55→15:31)
[2021-12-17] MEDS: Folic Acid/Vit B Comp W-C PO SCH (10:03)
[2021-12-17] MEDS: Folic Acid 1 MG TAB PO SCH (10:03)
[2021-12-17] MEDS: Rifaximin 550 MG TAB PO SCH (10:04)
[2021-12-17] MEDS: Cyanocobalamin (Vitamin B-12) 1,000 MCG TAB PO SCH (10:04)
[2021-12-17] MEDS: cefTRIAXone\\ROCEPHIN 1 GM in Sodium Chloride 0.9% 100 ML IVPB SCH (10:04)
[2021-12-17 15:33] VITALS: TEMP 98
[2021-12-18] MEDS ORDERED: Spironolactone 25 MG TAB PO SCH (09:00)
[2021-12-18] MEDS ORDERED: Furosemide 20 MG TAB PO SCH (09:00)
== END 2021-12-17 17:14 | disposition hospice, inpatient (51) | DRG 432 ==
LOC: ERS 06:55 → IMCU/EMU 09:40 → T4-B 11-19 06:42 → IMCU/EMU 12-15 01:30
PROVIDERS: ADMIT Internal Medicine; ATTEND Internal Medicine
PROC: 06HY33Z Insertion of Infusion Device into Lower Vein, Percutaneous Approach (ICD-10-PCS; principal; 2021-11-11)
PROC: 30233J1 Transfusion of Nonautologous Serum Albumin into Peripheral Vein, Percutaneous Approach (ICD-10-PCS; 2021-11-11)
PROC: 0JH63XZ Insertion of Tunneled Vascular Access Device into Chest Subcutaneous Tissue and Fascia, Percutaneous Approach (ICD-10-PCS; 2021-11-21)
PROC: 02HV33Z Insertion of Infusion Device into Superior Vena Cava, Percutaneous Approach (ICD-10-PCS; 2021-11-21)
PROC: B5181ZA Fluoroscopy of Superior Vena Cava using Low Osmolar Contrast, Guidance (ICD-10-PCS; 2021-11-21)
PROC: B548ZZA Ultrasonography of Superior Vena Cava, Guidance (ICD-10-PCS; 2021-11-21)
PROC: 30243R1 Transfusion of Nonautologous Platelets into Central Vein, Percutaneous Approach (ICD-10-PCS; 2021-11-21)
PROC: 0W9G3ZZ Drainage of Peritoneal Cavity, Percutaneous Approach (ICD-10-PCS; 2021-11-30)
PROC: 0W9G3ZZ Drainage of Peritoneal Cavity, Percutaneous Approach (ICD-10-PCS; 2021-12-09)
PROC: 5A09357 Assistance with Respiratory Ventilation, Less than 24 Consecutive Hours, Continuous Positive Airway Pressure (ICD-10-PCS; 2021-12-15)
PROC: 0W9G3ZZ Drainage of Peritoneal Cavity, Percutaneous Approach (ICD-10-PCS; 2021-12-16)
DX: K70.40 Alcoholic hepatic failure without coma (principal); U07.1 COVID-19; J12.82 Pneumonia due to coronavirus disease 2019; N17.0 Acute kidney failure with tubular necrosis; G93.41 Metabolic encephalopathy; N18.6 End stage renal disease; K65.2 Spontaneous bacterial peritonitis; J96.01 Acute respiratory failure with hypoxia; E87.2 Acidosis; E87.1 Hypo-osmolality and hyponatremia; J90 Pleural effusion, not elsewhere classified; I12.0 Hypertensive chronic kidney disease with stage 5 chronic kidney disease or end stage renal disease; K70.31 Alcoholic cirrhosis of liver with ascites; Z51.5 Encounter for palliative care; F17.210 Nicotine dependence, cigarettes, uncomplicated; R68.0 Hypothermia, not associated with low environmental temperature; I25.10 Atherosclerotic heart disease of native coronary artery without angina pectoris; E11.22 Type 2 diabetes mellitus with diabetic chronic kidney disease; E78.5 Hyperlipidemia, unspecified; K21.9 Gastro-esophageal reflux disease without esophagitis; E86.0 Dehydration; D69.59 Other secondary thrombocytopenia; E87.6 Hypokalemia; Z66 Do not resuscitate; D53.9 Nutritional anemia, unspecified; Z95.1 Presence of aortocoronary bypass graft; Z95.5 Presence of coronary angioplasty implant and graft; Z79.82 Long term (current) use of aspirin; Z79.899 Other long term (current) drug therapy
CPT/HCPCS: 36415; 36416; 36430; 36600; 49083; 51701; 70450; 71045; 74018; 80048; 80053; 81001; 81003; 81015; 82140; 82274; 82805; 83605; 83690; 83735; 83880; 84100; 84443; 84484; 85025; 85060; 85610; 85730; 86140; 86580; 86704; 86706; 86803; 86850; 86900; 86901; 87040; 87070; 87077; 87086; 87186; 87205; 87340; 89051; 90935; 93005; 94640; 94660; 94760; 96365; 96367; C1751; C1752; C9113; G0257; J0690; J0692; J0696; J1642; J1644; J1815; J1940; J2250; J2270; J2354; J2997; J3010; J3370; J3475; J3490; J7050; J7070; J7620; P9035; P9047; S0020

== ENCOUNTER 2021-12-17 17:24 | Inpatient (IN) | payer OTHER ==
[2021-12-17] MEDS ORDERED: Scopolamine 1.5 mg/72 hour Patch TOP PRN (18:00)
[2021-12-17] MEDS ORDERED: Loperamide HCl 2 MG CAP PO PRN (18:00)
[2021-12-17] MEDS ORDERED: Senokot 8.6 MG TAB PO PRN (18:00)
[2021-12-17] MEDS ORDERED: Milk Of Magnesia 30 ML UDCUP PO PRN (18:00)
[2021-12-17] MEDS ORDERED: Acetaminophen 650 MG Suppository PR PRN (18:00)
[2021-12-17] MEDS ORDERED: Morphine 10 MG/0.5 ML ORAL SYRINGE SL PRN (18:00)
[2021-12-17] MEDS ORDERED: Hyoscyamine Sulfate SL 0.125 mg Tablet SL PRN (18:00)
[2021-12-17] MEDS ORDERED: Ondansetron ODT 4 MG TAB PO PRN (18:00)
[2021-12-17] MEDS ORDERED: Promethazine HCl 25 MG SUPP PR PRN (18:00)
[2021-12-17] MEDS ORDERED: Haloperidol Lactate 5 MG/ML VIAL SLOW IVP PRN (18:00)
[2021-12-17] MEDS ORDERED: Zolpidem Tartrate 5 MG TAB PO PRN (18:00)
[2021-12-17] MEDS ORDERED: Ondansetron PF 4 MG/2 ML Vial IVP PRN (18:00)
[2021-12-17] MEDS ORDERED: Lorazepam 2 MG/ML VIAL SLOW IVP PRN (18:00)
[2021-12-17 21:44] VITALS: BP 102/62; TEMP 97.4
== END 2021-12-18 00:34 | disposition expired | DRG 951 ==
LOC: IMCU/EMU 17:24 → T4-A 19:57
PROVIDERS: ADMIT Family Medicine; ATTEND Family Medicine
DX: Z51.5 Encounter for palliative care (principal); G93.41 Metabolic encephalopathy; K65.2 Spontaneous bacterial peritonitis; N17.0 Acute kidney failure with tubular necrosis; Z66 Do not resuscitate; K72.90 Hepatic failure, unspecified without coma; D69.59 Other secondary thrombocytopenia; F10.10 Alcohol abuse, uncomplicated
CPT/HCPCS: J2060